=== PATIENT | female | born 1975 | race Caucasian/White ===

== ENCOUNTER 2021-02-20 13:46 | Outpatient (REF) | payer OTHER, SELFPAY ==
[2021-02-25 02:36] LABS: HPV mRNA E6/E7 Not Detected (Not Detected)
== END 2021-02-20 13:47 | disposition home or self-care (01) ==
LOC: HO.LAB 13:46
PROVIDERS: Visit Provider Internal Medicine
DX: Z12.4 Encounter for screening for malignant neoplasm of cervix (principal); Z11.51 Encounter for screening for human papillomavirus (HPV)
CPT/HCPCS: 87624; 88142

== ENCOUNTER 2021-02-25 06:39 | Outpatient (REF) | payer OTHER, SELFPAY ==
[2021-02-25 11:29] LABS: Glucose Urine UA NEG (NEG); Leukocyte Esterase Urine NEG (NEG); Nitrite Urine NEG (NEG); PH 6.5 (5.0-8.0); Specific Gravity - Urine 1.015 (1.005-1.025); Urine Blood NEG (NEG); Urine Ketones NEG (NEG); Urine Protein NEG (NEG-TRACE)
[2021-02-25 11:34] LABS: Hematocrit 40.1 % (37-47); Hemoglobin 13.2 g/dl (12.0-16.0); Mean Corpuscular HGB Conc 32.9 g/dl (31.0-35.0); Mean Corpuscular Hemoglobin 31.7 pg (27.0-33.0); Mean Corpuscular Volume 96.4 fL (80-98); Mean Platelet Volume 10.7 fL (9.4-12.3); Platelet Count 367 X10*3/uL (160-400); Red Blood Count 4.16 X10*6/uL (4.20-5.50); Red Cell Distribution Width 12.3 % (11.0-16.0); White Blood Count 7.7 X10*3/uL (4.8-10.8)
[2021-02-25 11:43] LABS: Appearance Urine CLEAR; Color Urine YELLOW
[2021-02-25 11:48] LABS: Alanine Aminotransferase 17 U/L (0-31); Albumin Level 4.3 g/dL (3.5-5.0); Alkaline Phosphatase 79 U/L (39-117); Anion Gap 13 (12-20); Aspartate Amino Transferase 19 U/L (5-31); Bilirubin Total 0.3 mg/dL (0.0-1.0); Blood Urea Nitrogen 11 mg/dL (9-16); Calcium 8.9 mg/dL (8.4-10.2); Carbon Dioxide 26 mmol/L (22-29); Chloride 104 mmol/L (96-108); Cholesterol 167 mg/dL; Estimated Glomerular Filt Rate > 60; Glucose Fasting 93 mg/dL (60-99); HDL Cholesterol 73 mg/dL; LDL Cholesterol Calculated 83 mg/dl; Potassium 4.3 mmol/L (3.3-5.1); Sodium 139 mmol/L (135-145); Total Protein 6.4 g/dL (6.5-8.0); Triglycerides 58 mg/dL
[2021-02-25 11:56] LABS: Bacteria Urine TRACE /LPF; RBC Urine 0 /HPF (0); Squamous Epithelial Cell Urine 3+ /LPF; WBC Urine 0 /HPF (0-4)
[2021-02-25 12:12] LABS: TSH reflex Free T4 1.25 uIU/mL (0.32-4.0)
== END 2021-02-25 06:40 | disposition home or self-care (01) ==
LOC: HO.HMGCLDS 06:39
PROVIDERS: PCP Internal Medicine; Visit Provider Internal Medicine
DX: Z00.00 Encounter for general adult medical examination without abnormal findings (principal)
CPT/HCPCS: 36415; 80053; 80061; 81001; 84443; 85027

== ENCOUNTER 2022-02-23 10:47 | Outpatient (REF) | payer OTHER, SELFPAY ==
[2022-03-02 11:51] LABS: HPV mRNA E6/E7 Not Detected (Not Detected)
== END 2022-02-23 10:48 | disposition home or self-care (01) ==
LOC: HO.LAB 10:47
PROVIDERS: Visit Provider Internal Medicine
DX: Z01.419 Encounter for gynecological examination (general) (routine) without abnormal findings (principal); Z11.51 Encounter for screening for human papillomavirus (HPV)
CPT/HCPCS: 87624; 88142

== ENCOUNTER 2023-03-02 09:01 | Outpatient (REF) | payer OTHER, SELFPAY ==
[2023-03-02 11:10] LABS: MANUAL DIFF FLAG NO
[2023-03-02 11:38] LABS: Basophils Absolute Auto 0.1 X10*3/uL (0.0-0.2); Eosinophils Absolute Auto 0.1 X10*3/uL (0.0-0.4); Eosinophils Percent Auto 1.1 % (0-4); Hematocrit 40.9 % (37.0-47.0); Hemoglobin 13.4 g/dl (12.0-16.0); Imm Gran Abs Auto 0.03 X10*3/uL (0.00-0.03); Imm Gran Pct Auto 0.4 % (0.0-0.4); Lymphocytes Absolute Auto 1.6 X10*3/uL (1.2-4.9); Lymphocytes Percent Auto 19.6 % (20-40); Mean Corpuscular HGB Conc 32.8 g/dl (31.0-35.0); Mean Corpuscular Hemoglobin 31.5 pg (27.0-33.0); Mean Corpuscular Volume 96.2 fL (80.0-98.0); Monocytes Absolute Auto 0.6 X10*3/uL (0.1-1.2); Monocytes Percent Auto 7.7 % (2-11); Neutrophils Absolute Auto 5.8 x10*3/uL (2.0-8.3); Neutrophils Percent Auto 70.2 % (45-73); Platelet Count 366 X10*3/uL (160-400); Red Blood Count 4.25 X10*6/uL (4.20-5.50); Red Cell Distribution Width 12.4 % (11.0-16.0); White Blood Count 8.2 X10*3/uL (4.8-10.8)
[2023-03-02 11:53] LABS: Alanine Aminotransferase 15 U/L (0-31); Albumin Level 4.3 g/dL (3.5-5.0); Alkaline Phosphatase 79 U/L (39-117); Anion Gap 11 (12-20); Aspartate Amino Transferase 17 U/L (5-31); Bilirubin Total 0.5 mg/dL (0.0-1.0); Blood Urea Nitrogen 10 mg/dL (9-16); Calcium 9.6 mg/dL (8.4-10.2); Carbon Dioxide 28 mmol/L (22-29); Chloride 106 mmol/L (96-108); Cholesterol 197 mg/dL; Estimated Glomerular Filt Rate > 60; Glucose Fasting 99 mg/dL (60-99); HDL Cholesterol 65 mg/dL; Iron 95 mcg/dL (30-160); LDL Cholesterol Calculated 119 mg/dl; Percent Iron Saturation 46 % (15-50); Potassium 4.3 mmol/L (3.3-5.1); Sodium 141 mmol/L (135-145); Total Iron Binding Capacity 205 mcg/dL (228-428); Total Protein 6.6 g/dL (6.5-8.0); Triglycerides 68 mg/dL; Unsaturated Iron Binding 110 ug/dL
[2023-03-02 12:10] LABS: TSH reflex Free T4 0.77 uIU/mL (0.32-4.0); Vitamin D 25-OH Total 36.7 ng/mL (>30)
== END 2023-03-02 09:02 | disposition home or self-care (01) ==
LOC: HO.HMGCLDS 09:01
PROVIDERS: PCP Internal Medicine; Visit Provider Internal Medicine
DX: Z00.00 Encounter for general adult medical examination without abnormal findings (principal); Z12.4 Encounter for screening for malignant neoplasm of cervix; Z20.2 Contact with and (suspected) exposure to infections with a predominantly sexual mode of transmission
CPT/HCPCS: 36415; 80053; 80061; 82306; 83540; 84443; 85025

== ENCOUNTER 2023-03-02 09:11 | Outpatient (REF) | payer OTHER, SELFPAY ==
[2023-03-03 22:54] LABS: HPV mRNA E6/E7 Not Detected (Not Detected)
== END 2023-03-02 09:12 | disposition home or self-care (01) ==
LOC: HO.LNP 09:11
PROVIDERS: Visit Provider Internal Medicine
DX: Z01.419 Encounter for gynecological examination (general) (routine) without abnormal findings (principal)
CPT/HCPCS: 87624; 88142

== ENCOUNTER 2023-04-07 15:51 | Outpatient (REF) | payer OTHER, SELFPAY ==
--- NOTE | ~2023-04-07 | MM_ITS ---
EXAMINATION: MM SCREENING DIGITAL BREAST TOMOSYNTHESIS, BILATERAL CLINICAL INFORMATION: Screening. Asymptomatic. The lifetime risk of breast cancer based on the Tyrer-Cuzick Model is 6.9%. COMPARISON: Mammography: This study is compared with prior exams dating back to 2018. TECHNIQUE: Digital breast tomosynthesis is performed in both the craniocaudal and mediolateral oblique views along with computer-aided detection (CAD). Synthesized 2D images are generated from the tomosynthesis. FINDINGS: The breasts are heterogeneously dense, which may obscure small masses (ACR BI-RADS breast composition Category c). There are no significant masses, abnormal calcifications, or other abnormalities. There is a tissue marker in the upper outer quadrant of the right breast from prior benign percutaneous biopsy. MM/MM tomosynthesis screening BI IMPRESSION: No mammographic evidence of malignancy. ASSESSMENT: BI-RADS BI-RADS 1 - Negative RECOMMENDATION: Routine annual mammography screening. 1 year F/U This examination should not preclude the clinical evaluation of a suspicious palpable abnormality. This patient's information was entered into a reminder system with a target due date for their next mammogram.
== END 2023-04-07 15:52 | disposition home or self-care (01) ==
LOC: HO.MAMMO 15:51
PROVIDERS: PCP Internal Medicine; Visit Provider Internal Medicine
DX: Z12.31 Encounter for screening mammogram for malignant neoplasm of breast (principal)
CPT/HCPCS: 77063; 77067

== ENCOUNTER → 2023-04-07 15:53 | Outpatient (BNV) | payer OTHER, SELFPAY | PROVIDERS: PCP Internal Medicine; Visit Provider Radiology Diagnostic Radiology | DX: Z12.31 Encounter for screening mammogram for malignant neoplasm of breast (principal) | CPT/HCPCS: 77063; 77067 ==

== ENCOUNTER 2023-04-28 11:09 | Outpatient (AMB) | payer OTHER, SELFPAY ==
--- NOTE | 2023-04-28 11:13 | MHC.OFFWIV ---
Intake Vital Signs 04/28/23 11:14 Height 5 ft 7 in BP 136/70 Blood Pressure Location Rt brachial Position Sitting Pulse 95 Pulse Source Pulse Oximeter Temp 96.8 F Temp Source Temporal Artery Scan Pulse Oximetry (%) 100 Oxygen Delivery Method Room Air Intake Visit Reasons: EST/hard time breathing Intake Note: Pt is here c/o feeling SOB since this morning. Pt states she has a history of panic attacks and feels like they are coming back. Patient Tobacco Use Status: Current everyday Tobacco user Allergies No Known Allergies Allergy (Verified 04/28/23 11:14) Do you need a note to return to daycare/school/sports/work: No HPI HPI Comments History of Present Illness Details The patient presents to the Urgent Care for evaluation of acute anxiety. She states that she sporadically has panic attacks at work it is always work related. She states that started about 3 years ago with a problem with communication at work, patient is a primary Albanian speaker and occasionally has trouble understanding Latvian. She reports that a new co-worker started in October and since then she felt like her panic attacks seem to be returning. She says the for sporadic and has them about once a month. There is associated shortness of breath. Patient is tearful, And crying at this time. [facility] Medical History Annual physical exam Smoker Surgical History H/O breast biopsy Family History Father No problems noted. Mother No problems noted. Social History Housing: House Alcohol intake: current Alcohol intake frequency: a few times a month Patient Tobacco Use Status: Current everyday Tobacco user Tobacco use type: Cigarette Cigarettes Per Day: 10 e-Cigarette/Vaping Use: Never Used Current occupational status: employed Cognitive needs: No Hearing needs: No Vision needs: Yes Review of Systems Const Denies weakness Eyes Reports no additional complaints ENT Denies dysphagia Card Reports no additional complaints, Denies dyspnea and Denies dyspnea on exertion Resp Denies cough, Denies hemoptysis, Denies dyspnea and Denies dyspnea on exertion GI Denies dysphagia Denies urinary incontinence Musc Reports back pain, Denies muscle weakness, Denies numbness and Denies tingling Neuro Denies focal weakness, Denies numbness, Denies tingling, Denies paresthesias and Denies weakness Physical Exam Vital Signs: Last Vital Signs Temp 96.8 F 04/28/23 11:14 Pulse 95 04/28/23 11:14 BP 136/70 04/28/23 11:14 Pulse Ox 100 04/28/23 11:14 Oxygen Delivery Method Room Air 04/28/23 11:14 Const General: healthy appearing and no acute distress Orientation/consciousness: patient oriented x3 Eyes General: appearance normal, both eyes and all related structures Pupils: Equal, round and reactive pupils present Resp Effort & Inspection: normal respiratory effort and able to speak in complete sentences Auscultation: clear to auscultation bilaterally Cardio Rate: regular rate Rhythm: regular rhythm Heart sounds: S1 normal heart sound present and S2 normal heart sound present Neuro General: patient oriented x3 and Normal light touch and pain sensation Cranial nerves: Yes Equal, round and reactive pupils present Psych Mental Status: other (Tearful ) Affect: Anxious affect present Insight: Good insight present (Psych) Assessment & Plan Assessment & Plan (1) Acute anxiety: Code(s): F41.9 - Anxiety disorder, unspecified Plan: The patient is weeks with a therapist and was just referred to a psychiatrist. She was prescribed BuSpar as an antidepressant per her PCP however she reports it made her nauseous and she did not continue taking it. At this time I think giving her a bridge to get her to the psychiatrist would be helpful and I will prescribe her Ativan to take p.r.n. only for acute panic episodes. Information was communicated to the patient in her napaimute Albanian that she had full understanding of the information. Patient has a follow-up appointment with PCP in 2 days. She was given a work note Medications: New lorazepam (Ativan) 1 mg PO BID PRN 14 tabs 0RF anxiety Coding Level of Care Code Est Pt Level 3 (29764) Diagnoses Acute anxiety F41.9
[2023-04-28 11:14] VITALS: BP 136/70; PULSE 95; TEMP 36; O2SAT 100
== END 2023-04-28 16:57 | disposition home or self-care (01) ==
PROVIDERS: PCP Internal Medicine; Visit Provider Emergency Medicine
DX: F41.9 Anxiety disorder, unspecified (principal)
CPT/HCPCS: 99213

== ENCOUNTER 2023-05-02 14:08 | Outpatient (AMB) | payer OTHER, SELFPAY ==
--- NOTE | 2023-05-02 14:52 | MHC.PC.OV ---
Vital Signs 05/02/23 14:55 Height 5 ft 7 in Weight 176 lb 6 oz BMI 27.6 BP 118/72 Blood Pressure Location Lt brachial Position Sitting Pulse 78 Pulse Source Pulse Oximeter Pulse Oximetry (%) 98 Oxygen Delivery Method Room Air Intake Visit Reasons: Follow up after walk in Allergies buspirone Adverse Reaction (Intermediate, Verified 05/02/23 15:22) Nausea and Vomiting Medication List - Last Reconciled 05/02/23 by Lennie Donohue MD buspirone 5 mg PO TID lorazepam (Ativan) 1 mg PO BID PRN ropinirole 0.5 mg PO BEDTIME sertraline 50 mg PO DAILY Tobacco use date assessed: 05/02/23 Dental Screening Dental Screen Date: 05/02/23 Did you have a dental visit in the last 12 months?: Yes Did you have a dental problem in the last 6 months where you did not have access to dental care?: No Was dental information given to patient?: No HPI Follow up after walk in HPI Details Pt presents for f/u panic attacks since 3 years ago, worse for the last 1 month. 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 Interaction with a new automated equipment engineer technician triggers patient's stress response occasionally escalating to panic attack. Patient started psychotherapy a month ago and has an appointment with psychiatrist next week. She has been drinking alcohol every night to calm herself and feels that she is drinking too much. Patient denies alcohol withdrawal symptoms. Patient has been taking buspirone on and off and feels that she is not craving alcohol as much after taking it but reports having some stomach upset for 2 hours after taking the medication. Patient states that she usually has a lot side effects from different medications. [facility] Medical History Annual physical exam Smoker Surgical History H/O breast biopsy Family History Father No problems noted. Mother No problems noted. Social History Housing: House Alcohol intake: current Alcohol intake frequency: a few times a month Patient Tobacco Use Status: Current everyday Tobacco user Tobacco use type: Cigarette Cigarettes Per Day: 10 e-Cigarette/Vaping Use: Never Used Current occupational status: employed Cognitive needs: No Hearing needs: No Vision needs: Yes Questionnaire Thrive Questionnaire Date Thrive assessed: 03/02/23 AUDIT C Alcohol Use Questionnaire (AUDIT-C) 1. How often do you have a drink containing alcohol?: Never 3. How often do you have six or more drinks on one occasion?: Never Total Score: 0 Score Reviewed/Action Taken: Yes HILDA-7 AMB Questionnaire HILDA-7 Date HILDA - 7 assessed: 03/02/23 Source: Developed by Drs. Isidro Victor, Desire Freeman, Nain Serrato and colleagues, with an educational ivis from [employer]. Review of Systems Const All systems reviewed & are unremarkable except as noted in HPI and below Reports no additional complaints Eyes Reports no additional complaints ENT Reports no additional complaints Card Reports no additional complaints Resp Reports no additional complaints GI Reports no additional complaints Reports no additional complaints Physical exam (Primary Care) Vital Signs: Last Vital Signs Pulse 78 05/02/23 14:55 BP 118/72 05/02/23 14:55 Pulse Ox 98 05/02/23 14:55 Oxygen Delivery Method Room Air 05/02/23 14:55 BMI result Body Mass Index 27.6 Tobacco/Smoking Status: Tobacco use Status Tobacco use date assessed 05/02/23 05/02/23 14:57 Patient Tobacco Use Status Current everyday Tobacco 05/02/23 14:53 Tobacco use type Cigarette 05/02/23 14:53 e-Cigarette/Vaping Use Never Used 05/02/23 14:53 Thrive Assessment: Date of Thrive Assessment Date Thrive assessed 03/02/23 05/02/23 14:53 Const General: no acute distress HENMT Face and sinus: Yes normal facial exam Resp Effort & Inspection: normal respiratory effort Auscultation: clear to auscultation bilaterally Cardio Rhythm: regular rhythm Heart sounds: S1 normal heart sound present and S2 normal heart sound present Assessment and Plan Assessment & Plan (1) Panic attack as reaction to stress: Code(s): F41.0 - Panic disorder [episodic paroxysmal anxiety]; F43.0 - Acute stress reaction Plan: Stress management discussed with the patient she will continue psychotherapy and follow-up with psychiatrist (2) Anxiety: Code(s): F41.9 - Anxiety disorder, unspecified Plan: Different treatment option discussed with the patient. She will continue to take buspirone at bedtime and increase to twice a day as she tolerates. She was given out of work note until May 23. (3) Alcohol overdose: Code(s): T51.91XA - Toxic effect of unspecified alcohol, accidental (unintentional), initial encounter Plan: Cutting down on alcohol intake discussed with the patient Medications: Discontinued lorazepam (Ativan) Discontinued Reason: Doctor's Order 1 mg PO BID PRN 14 tabs 0RF anxiety Coding Level of Care Code Est Pt Level 4 (94186) Diagnoses Panic attack as reaction to stress F41.0; F43.0 Anxiety F41.9 Alcohol overdose T51.91XA
[2023-05-02 14:55] VITALS: BP 118/72; PULSE 78; O2SAT 98; BMI 27.6
== END 2023-05-02 15:56 | disposition home or self-care (01) ==
PROVIDERS: PCP Internal Medicine; Visit Provider Internal Medicine
DX: F41.0 Panic disorder [episodic paroxysmal anxiety] (principal); F43.0 Acute stress reaction; F41.9 Anxiety disorder, unspecified; T51.91XA Toxic effect of unspecified alcohol, accidental (unintentional), initial encounter
CPT/HCPCS: 99214

== ENCOUNTER 2023-05-19 10:25 | Outpatient (AMB) | payer OTHER, SELFPAY ==
[2023-05-19 10:33] VITALS: BP 122/74; PULSE 84; O2SAT 96; BMI 27.6
--- NOTE | 2023-05-19 10:33 | MHC.PC.OV ---
Vital Signs 05/19/23 10:33 Height 5 ft 7 in Weight 176 lb BMI 27.6 BP 122/74 Blood Pressure Location Lt brachial Position Sitting Pulse 84 Pulse Source Pulse Oximeter Pulse Oximetry (%) 96 Oxygen Delivery Method Room Air Intake Visit Reasons: Follow up Intake Note: Pt is here today for a follow up visit on anxiety. Allergies buspirone Adverse Reaction (Intermediate, Verified 05/19/23 10:35) Nausea and Vomiting propanolol Adverse Reaction (Intermediate, Uncoded 05/19/23 11:12) Agitated Medication List - Last Reconciled 05/19/23 by Lennie Donohue MD ropinirole 0.75 mg (1.5 x 0.5 mg) PO BEDTIME Tobacco use date assessed: 05/02/23 HPI Follow up HPI Details Patient presents for the follow-up anxiety and panic attacks. She was seen by psychiatrist and started on propranolol for took it only for 4 days because of worsening symptoms of anxiety and anger. She follows up with a counselor regularly and has an appointment psychiatrist this week. Patient has not been able to go back to work and would like to extend out of work time for 6 months. [facility] Medical History Annual physical exam Smoker Surgical History H/O breast biopsy Family History Father No problems noted. Mother No problems noted. Social History Housing: House Alcohol intake: current Alcohol intake frequency: a few times a month Patient Tobacco Use Status: Current everyday Tobacco user Tobacco use type: Cigarette Cigarettes Per Day: 10 e-Cigarette/Vaping Use: Never Used Current occupational status: employed Cognitive needs: No Hearing needs: No Vision needs: Yes Questionnaire Thrive Questionnaire Date Thrive assessed: 03/02/23 HILDA-7 AMB Questionnaire HILDA-7 Date HILDA - 7 assessed: 03/02/23 Source: Developed by Drs. Isidro Victor, Desire Freeman, Nain Serrato and colleagues, with an educational ivis from [email or web address]. Review of Systems Const All systems reviewed & are unremarkable except as noted in HPI and below Reports no additional complaints Eyes Reports no additional complaints ENT Reports no additional complaints Card Reports no additional complaints Resp Reports no additional complaints GI Reports no additional complaints Physical exam (Primary Care) Vital Signs: Last Vital Signs Pulse 84 05/19/23 10:33 BP 122/74 05/19/23 10:33 Pulse Ox 96 05/19/23 10:33 Oxygen Delivery Method Room Air 05/19/23 10:33 BMI result Body Mass Index 27.6 Tobacco/Smoking Status: Tobacco use Status Tobacco use date assessed 05/02/23 05/19/23 10:37 Patient Tobacco Use Status Current everyday Tobacco 05/19/23 10:37 Tobacco use type Cigarette 05/19/23 10:37 e-Cigarette/Vaping Use Never Used 05/19/23 10:37 Thrive Assessment: Date of Thrive Assessment Date Thrive assessed 03/02/23 05/19/23 10:37 Const General: no acute distress HENMT Head: Yes normal to inspection Mouth: Normal oral and palatal mucosa present Neck Neck: Yes supple Resp Effort & Inspection: normal respiratory effort Auscultation: clear to auscultation bilaterally Cardio Rhythm: regular rhythm Heart sounds: S1 normal heart sound present and S2 normal heart sound present Assessment and Plan Assessment & Plan (1) Anxiety: Code(s): F41.9 - Anxiety disorder, unspecified Plan: Continue current therapy and out of work note given for 6 months. Patient will follow-up in 6 months Medications: Changed From ropinirole administer 1-3 hours before bedtime 0.5 mg PO BEDTIME 90 tabs 6RF To ropinirole administer 1-3 hours before bedtime 0.75 mg (1.5 x 0.5 mg) PO BEDTIME 135 tabs 6RF Coding Level of Care Code Est Pt Level 3 (86989) Diagnoses Anxiety F41.9
== END 2023-05-19 11:32 | disposition home or self-care (01) ==
PROVIDERS: PCP Internal Medicine; Visit Provider Internal Medicine
DX: F41.9 Anxiety disorder, unspecified (principal)
CPT/HCPCS: 99213

== ENCOUNTER 2023-05-30 07:54 | Outpatient (AMB) | payer OTHER, SELFPAY ==
--- NOTE | 2023-05-30 08:13 | MHC.OFFVIS ---
Intake Vital Signs 05/30/23 08:22 Height 5 ft 7 in BP 108/64 Blood Pressure Location Lt brachial Position Sitting Pulse 78 Intake Visit Reasons: Colonoscopy screening Intake Note: Patient new consult for Colonoscopy screening. Patient cc: rectal bleeding with hemorrhoids. Denies any other GI issues. Cytogenetic Technician Required: Yes Cytogenetic Technician Name: Arianne [id number] Accompanied by: Self / Same As Patient Allergies buspirone Adverse Reaction (Intermediate, Verified 05/30/23 08:13) Nausea and Vomiting propanolol Adverse Reaction (Intermediate, Uncoded 05/19/23 11:12) Agitated Medication List - Last Reconciled 05/30/23 by Anna Elias PA-C ropinirole 0.75 mg (1.5 x 0.5 mg) PO BEDTIME HPI HPI Comments History of Present Illness Details A 47 y/o F referred for index screening colonoscopy- hemorrhoids occ. rectal bleeding- they seem to bother her-she asks to have them removed- Good appetite, she says she has no real GI issues-she has been off work due to anxiety/social issues No respiratory or cardiac illness No N/V/ D- abdominal pain-no fever or chill PFSH Medical History Annual physical exam Smoker Surgical History H/O breast biopsy Family History Father No problems noted. Mother No problems noted. Social History (Updated 05/30/23 @ 08:24 by Anna Elias PA-C) Housing: House Alcohol intake: current Alcohol intake frequency: a few times a month Patient Tobacco Use Status: Current everyday Tobacco user Tobacco use type: Cigarette Cigarettes Per Day: 10 e-Cigarette/Vaping Use: Never Used Current occupational status: employed Current occupation: [employer] Cognitive needs: No Hearing needs: No Vision needs: Yes Review of Systems Const All systems reviewed & are unremarkable except as noted in HPI and below Card Denies chest pain and Denies dyspnea Resp Denies dyspnea GI Denies abdominal pain, Denies nausea, Denies vomiting and Reports other (hemorrhoids- rectal bleed intermittent) Psych Reports anxiety Physical Exam Vital Signs: Last Vital Signs Pulse 78 05/30/23 08:22 BP 108/64 05/30/23 08:22 Const General: cooperative, healthy appearing, comfortable and no acute distress Orientation/consciousness: patient oriented x3 Limitations: language barrier Eyes Sclerae: sclerae normal Resp Effort & Inspection: normal respiratory effort and able to speak in complete sentences Auscultation: clear to auscultation bilaterally, no rales, no rhonchi and no wheezes Cardio Rate: regular rate Rhythm: regular rhythm Heart sounds: S1 normal heart sound present and S2 normal heart sound present GI Palpation (GI): Soft to palpation and nontender Auscultation: normal bowel sounds Skin General skin exam: no rashes or lesions noted Neuro General: patient oriented x3 Extrem General: Yes full ROM Psych Appearance: grossly normal and well kempt Mental Status: mental status grossly normal Speech and movement: Normal speech and movement present and Clear speech present Affect: normal affect Attitude: cooperative Thought process: Normal thought process present Thought content: Normal thought content present Insight: Good insight present (Psych) Judgement: Good judgement present (Psych) Assessment & Plan Assessment & Plan (1) Encounter for screening colonoscopy: Code(s): Z12.11 - Encounter for screening for malignant neoplasm of colon Plan: Index screening colonoscopy MiraLax Gatorade split prep (2) Hemorrhoids: Code(s): K64.9 - Unspecified hemorrhoids Plan: Maintain high-fiber diet Avoid straining Rectal cream Surgical consult (3) Rectal bleeding: Code(s): K62.5 - Hemorrhage of anus and rectum Plan Intermittent Orders: Orders Colonoscopy - GI Use Only Today Z12.11 - Encounter for screening for malignant neoplasm of colon Referrals General Surgery Referral K62.5 - Hemorrhage of anus and rectum, K64.9 - Unspecified hemorrhoids Medications: New bisacodyl (Dulcolax (bisacodyl)) Take 4 tablets by mouth at 12:00pm the day before your procedure. 20 mg (4 x 5 mg) PO ONCE 1 day 4 tabs 0RF colonoscopy prep Z12.11 - Encounter for screening for malignant neoplasm of colon polyethylene glycol 3350 (Miralax) Take as directed by mouth the day before your procedure. 238 grams PO ONCE 1 day PRN 238 grams 0RF laxative effect hydrocortisone 2.5% (Proctosol HC) 1 appl IN BEDTIME PRN 30 grams 3RF hemorrhoids Patient Instructions: A very pleasant 47-year-old female referred for index screening colonoscopy-known hemorrhoids intermittent rectal bleeding with straining She would be scheduled for Screening colonoscopy- MG prep Maintain HFD- avoid straining- rectal cream Surgical referral for hemorrhoids Call with questions or concerns Coding Level of Care Code New Pt Level 3 (96153) Diagnoses Encounter for screening colonoscopy Z12.11 Hemorrhoids K64.9 Rectal bleeding K62.5 Time Spent (min) 30 Comment [id number]
[2023-05-30 08:22] VITALS: BP 108/64; PULSE 78
== END 2023-05-30 10:40 | disposition home or self-care (01) ==
PROVIDERS: PCP Internal Medicine; Visit Provider Physician Assistant
DX: K64.9 Unspecified hemorrhoids (principal); K62.5 Hemorrhage of anus and rectum; Z12.11 Encounter for screening for malignant neoplasm of colon; Z01.818 Encounter for other preprocedural examination
CPT/HCPCS: 99203

== ENCOUNTER → 2023-05-30 07:54 | Outpatient (BNVA) | payer OTHER, SELFPAY | PROVIDERS: PCP Internal Medicine; Visit Provider Physician Assistant ==

== ENCOUNTER 2023-06-15 10:54 | Outpatient (AMB) | payer OTHER, SELFPAY ==
[2023-06-15 11:00] VITALS: BP 117/61; PULSE 68
--- NOTE | 2023-06-15 11:00 | A.OFFVIS_ITS ---
Intake Vital Signs 06/15/23 11:00 Height 5 ft 7 in BP 117/61 Blood Pressure Location Rt brachial Position Sitting Pulse 68 Intake Visit Reasons: Hemorrhoids, hemorrhage of anus and rectum Intake Note: This patient presents for an assessment for hemorrhoids. Patient c/o; Onset 4-5 years, occasional rectal bleeding, denies Hx of constipation. Process Safety Specialist Required: Yes Process Safety Specialist Language: Guamanian Process Safety Specialist Name: Francia([id number]) Gauge Maker Apprentice: Gauge Maker Apprentice offered & declined Accompanied by: Self / Same As Patient Allergies buspirone Adverse Reaction (Intermediate, Verified 06/15/23 11:10) Nausea and Vomiting propanolol Adverse Reaction (Intermediate, Uncoded 06/15/23 11:10) Agitated Medication List - Last Reconciled 06/15/23 by Lemuel Lange MD bisacodyl (Dulcolax (bisacodyl)) 20 mg (4 x 5 mg) PO ONCE 1 day hydrocortisone 2.5% (Proctosol HC) 1 appl VA BEDTIME PRN polyethylene glycol 3350 (Miralax) 238 grams PO ONCE PRN 1 day ropinirole 0.75 mg (1.5 x 0.5 mg) PO BEDTIME HPI Hemorrhoids, hemorrhage of anus and rectum HPI Details 47-year-old female referred for hemorrho ids. She says that she know says she has had hemorrhoids for many years. She says that for about several years now, she would notice periodic blood on wiping after bowel movements. She also says that once in a while she would feel some pain and the anus She denies being constipated. She describes her symptoms are so mild however. [facility] Medical History (Updated 06/15/23 @ 15:36 by Lemuel Lange MD) Internal and external bleeding hemorrhoids Smoker Annual physical exam Surgical History H/O breast biopsy Family History Father No problems noted. Mother No problems noted. Social History Housing: House Alcohol intake: current Alcohol intake frequency: a few times a month Patient Tobacco Use Status: Current everyday Tobacco user Tobacco use type: Cigarette Cigarettes Per Day: 10 e-Cigarette/Vaping Use: Never Used Current occupational status: employed Current occupation: [employer] Cognitive needs: No Hearing needs: No Vision needs: Yes Review of Systems Const Denies chills and Denies fever(s) Card Denies chest pain, Denies dyspnea and Denies dyspnea on exertion Resp Denies cough, Denies dyspnea and Denies dyspnea on exertion GI Reports hematochezia and Denies change in bowel habits Denies hematuria Musc Denies back pain and Denies limited range of motion Neuro Denies focal weakness and Denies convulsions Psych Denies depression and Denies mood swings Physical Exam Vital Signs: Last Vital Signs Pulse 68 06/15/23 11:00 BP 117/61 06/15/23 11:00 Const General: comfortable and no acute distress Orientation/consciousness: patient oriented x3 Neck Neck: Yes no lymphadenopathy Resp Auscultation: clear to auscultation bilaterally Cardio Rhythm: regular rhythm GI Other: Rectal exam shows moderate size external hemorrhoids Palpation (GI): Soft to palpation, nontender and no guarding Neuro General: patient oriented x3 Office Procedures Anoscopy She was in jean marie-knife position. The anoscope was gently inserted. Mixed internal and external hemorrhoidal columns on seen on both the left and right side. There were no other lesions. There was no fissure. There is no significant tenderness. There was no bleeding. There was good sphincter tone. [id number] Assessment & Plan Assessment & Plan (1) Internal and external bleeding hemorrhoids: Code(s): K64.4 - Residual hemorrhoidal skin tags; K64.8 - Other hemorrhoids Plan: She has moderate sized columns of internal and external hemorrhoids as described above. I had a long discussion with her about the option of proceeding with hemorrhoidectomy. I described the technique of this procedure. I reviewed the risks including but not limited to bleeding, infections significant postop pain, poor healing, as well as the benefits and alternatives. I also had a long talk with their as to what to expect postprocedure She does state that she feels that her symptoms are minimal at this time. She would like to hold off on hemorrhoidectomy for now. She says that if she feels that her symptoms are worsening, she will come back to the office to be re- evaluated. Coding Level of Care Code New Pt Level 3 (33840) Diagnoses Internal and external bleeding hemorrhoids K64.4; K64.8 CPT Codes Details - CPT: 53451-[id number] ([id number])
== END 2023-06-15 11:27 | disposition home or self-care (01) ==
PROVIDERS: PCP Internal Medicine; Referring Provider Physician Assistant; Visit Provider Surgery
DX: K64.4 Residual hemorrhoidal skin tags (principal); K64.8 Other hemorrhoids
CPT/HCPCS: 46600; 99203

== ENCOUNTER → 2023-06-15 10:54 | Outpatient (BNVA) | payer OTHER, SELFPAY | PROVIDERS: PCP Internal Medicine; Referring Provider Physician Assistant; Visit Provider Surgery | DX: K64.4 Residual hemorrhoidal skin tags (principal); K64.8 Other hemorrhoids | CPT/HCPCS: 46600 ==

== ENCOUNTER 2024-03-05 08:21 | Outpatient (REF) | payer OTHER, SELFPAY ==
[2024-03-05 10:25] LABS: MANUAL DIFF FLAG NO
[2024-03-05 10:41] LABS: Basophils Absolute Auto 0.1 X10*3/uL (0.0-0.2); Eosinophils Absolute Auto 0.2 X10*3/uL (0.0-0.4); Eosinophils Percent Auto 2.3 % (0-4); Hematocrit 40.1 % (37.0-47.0); Hemoglobin 13.3 g/dl (12.0-16.0); Imm Gran Abs Auto 0.03 X10*3/uL (0.00-0.03); Imm Gran Pct Auto 0.4 % (0.0-0.4); Lymphocytes Absolute Auto 2.1 X10*3/uL (1.2-4.9); Lymphocytes Percent Auto 26.5 % (20-40); Mean Corpuscular HGB Conc 33.2 g/dl (31.0-35.0); Mean Corpuscular Hemoglobin 31.7 pg (27.0-33.0); Mean Corpuscular Volume 95.5 fL (80.0-98.0); Mean Platelet Volume 10.7 fL (9.4-12.3); Monocytes Absolute Auto 0.5 X10*3/uL (0.1-1.2); Monocytes Percent Auto 6.8 % (2-11); Platelet Count 386 X10*3/uL (160-400); Red Cell Distribution Width 12.3 % (11.0-16.0); White Blood Count 7.9 X10*3/uL (4.8-10.8)
[2024-03-05 11:00] LABS: Iron 73 mcg/dL (30-160); Percent Iron Saturation 35 % (15-50); Total Iron Binding Capacity 211 mcg/dL (228-428); Unsaturated Iron Binding 138 ug/dL
== END 2024-03-05 08:22 | disposition home or self-care (01) ==
LOC: HO.HMGCLDS 08:21
PROVIDERS: PCP Internal Medicine; Visit Provider Internal Medicine
DX: G25.81 Restless legs syndrome (principal)
CPT/HCPCS: 36415; 83540; 85025

== ENCOUNTER 2024-03-05 08:49 | Outpatient (AMB) | payer OTHER, SELFPAY ==
--- NOTE | 2024-03-05 08:54 | A.OFFPC_ITS ---
Vital Signs 03/05/24 08:55 Height 5 ft 7 in Weight 176 lb BMI 27.6 BP 104/66 Blood Pressure Location Rt brachial Position Sitting Pulse 69 Pulse Source Pulse Oximeter Pulse Oximetry (%) 98 Oxygen Delivery Method Room Air Intake Visit Reasons: Annual PE Intake Note: Pt is here today for PE. Allergies buspirone Adverse Reaction (Intermediate, Verified 03/05/24 08:57) Nausea and Vomiting propanolol Adverse Reaction (Intermediate, Uncoded 03/05/24 08:57) Agitated Medication List - Last Reconciled 03/05/24 by Lennie Donohue MD bisacodyl (Dulcolax (bisacodyl)) 20 mg (4 x 5 mg) PO ONCE 1 day hydrocortisone 2.5% (Proctosol HC) 1 appl [place] BEDTIME PRN polyethylene glycol 3350 (Miralax) 238 grams PO ONCE PRN 1 day ropinirole 0.75 mg (1.5 x 0.5 mg) PO BEDTIME Tobacco use date assessed: 03/05/24 Dental Screening Dental Screen Date: 03/05/24 Did you have a dental visit in the last 12 months?: Yes Did you have a dental problem in the last 6 months where you did not have access to dental care?: No Was dental information given to patient?: Patient has dentist HPI Annual PE HPI Details Pt presents for PE. She has been waiting for an appointment for screening colonoscopy since last May. Patient complains of hot flashes and insomnia since last year. Anxiety resolved PFSH Medical History Internal and external bleeding hemorrhoids Smoker Annual physical exam Surgical History H/O breast biopsy Family History Father No problems noted. Mother No problems noted. Social History Housing: House Alcohol intake: current Alcohol intake frequency: a few times a month Patient Tobacco Use Status: Current everyday Tobacco user Tobacco use type: Cigarette Cigarettes Per Day: 10 e-Cigarette/Vaping Use: Never Used service: No Current occupational status: employed Current occupation: [employer] Cognitive needs: No Hearing needs: No Vision needs: Yes Questionnaire PHQ-9 Over the last 2 weeks, how often have you been bothered by any of the following problems? 1. Little interest or pleasure in doing things: not at all 2. Feeling down, depressed, or hopeless: not at all 3. Trouble falling or staying asleep, or sleeping too much: not at all 4. Feeling tired or having little energy: not at all 5. Poor appetite or overeating: not at all 6. Feeling bad about yourself - or that you are a failure or have let yourself or your family down: not at all 7. Trouble concentrating on things, such as reading the newspaper or watching television: not at all 8. Moving or speaking so slowly that other people could have noticed. Or the opposite - being so fidgety or restless that you have been moving around a lot more than usual: not at all 9. Thoughts that you would be better off or of hurting yourself in some way: not at all Total score: 0 Depression Screening Interpretation: Negative Depression Screening Done: Yes Source: Developed by Drs. Isidro Victor, Desire Freeman, Nain Serrato and colleagues, with an educational ivis from [employer]. Thrive Questionnaire Date Thrive assessed: 03/05/24 I am a: Patient What is your living situation today?: I have a steady place to live Within the past 12 months, did the food you bought not last and you didn't have the money to get more?: Never true Within the past 12 months, did you worry whether your food would run out before you got money to buy more?: Never true Do you have trouble paying for medicines?: No Do you have trouble getting transportation to medical appointments?: No Do you have trouble paying your heating and electricity bill?: No Do you have trouble taking care of your child, family member or friend?: No Do you have trouble with day-to-day activities such as bathing, preparing meals, shopping, managing finances, etc.?: No Are you currently unemployed and looking for a job?: No Are you interested in more education?: No Please select the resources that you would like help with: None THRIVE Score: 0 AUDIT C Alcohol Use Questionnaire (AUDIT-C) 1. How often do you have a drink containing alcohol?: Monthly or less 2. How many drinks containing alcohol do you have on a typical day when you are drinking?: 1 or 2 3. How often do you have six or more drinks on one occasion?: Never Total Score: 1 HILDA-7 AMB Questionnaire HILDA-7 Date HILDA - 7 assessed: 03/05/24 Feeling nervous, anxious, or on edge: 0 = Not at all Not being able to stop or control worryin = Not at all Worrying too much about different things: 0 = Not at all Trouble relaxin = Not at all Being so restless that it is hard to sit still: 0 = Not at all Becoming easily annoyed or irritable: 0 = Not at all Feeling afraid as if something awful might happen: 0 = Not at all Total HILDA-7 score (0-4 normal; 5-9 mild; 10-14 moderate; 15-21 severe): 0 Source: Developed by Drs. Isidro Victor, Desire Freeman, Nain Serrato and colleagues, with an educational ivis from [employer]. Review of Systems Const All systems reviewed & are unremarkable except as noted in HPI and below Reports no additional complaints Eyes Reports no additional complaints ENT Reports no additional complaints Card Reports no additional complaints Resp Reports no additional complaints GI Reports no additional complaints Reports no additional complaints Physical exam (Primary Care) Vital Signs: Last Vital Signs Pulse 69 03/05/24 08:55 BP 104/66 03/05/24 08:55 Pulse Ox 98 03/05/24 08:55 Oxygen Delivery Method Room Air 03/05/24 08:55 BMI result Body Mass Index 27.6 Tobacco/Smoking Status: Tobacco use Status Tobacco use date assessed 03/05/24 03/05/24 08:59 Patient Tobacco Use Status Current everyday Tobacco 03/05/24 08:59 Tobacco use type Cigarette 03/05/24 08:59 e-Cigarette/Vaping Use Never Used 03/05/24 08:59 PHQ-9: PHQ-9 Score PHQ-9: Total score 0 03/05/24 09:04 Depression Screening Interpretation: Negative Thrive Assessment: Date of Thrive Assessment Date Thrive assessed 03/05/24 03/05/24 09:04 Const General: no acute distress HENMT Head: Yes normal to inspection Ears: hearing grossly normal bilaterally Face and sinus: Yes normal facial exam Mouth: Normal oral and palatal mucosa present Throat: Yes posterior oropharynx normal Eyes General: appearance normal, both eyes and all related structures Neck Neck: Yes no lymphadenopathy and Yes supple Resp Effort & Inspection: normal respiratory effort Auscultation: clear to auscultation bilaterally Cardio Rhythm: regular rhythm Heart sounds: S1 normal heart sound present and S2 normal heart sound present GI Inspection: Yes normal to inspection Palpation (GI): Soft to palpation Percussion: Yes normal to percussion Auscultation: normal bowel sounds Assessment and Plan Assessment & Plan (1) Annual physical exam: Code(s): Z00.00 - Encounter for general adult medical examination without abnormal findings Plan: Well-balanced diet regular exercise discussed with the patient. She is up-to-date with the mammogram. The message to [facility] sent to schedule screening colonoscopy (2) Smoker: Comment: 1 PPD X 30 yrs, not interested to quit, referred to lung ca screen program 03/05/24 Code(s): F17.200 - Nicotine dependence, unspecified, uncomplicated Plan: Referred for lung cancer screening program, tobacco quitting discussed with the patient Orders: Orders Comprehensive Whitney. Panel Fast 1 Year . - Nicotine dependence, unspecified, uncomplicated, Z00.00 - Encounter for general adult medical examination without abnormal findings Complete Blood Count Auto Diff 1 Year . - Nicotine dependence, unspecified, uncomplicated, Z00.00 - Encounter for general adult medical examination without abnormal findings Lipid Panel 1 Year . - Nicotine dependence, unspecified, uncomplicated, Z00.00 - Encounter for general adult medical examination without abnormal findings Vitamin D 25-OH Total 1 Year . - Nicotine dependence, unspecified, uncomplicated, Z00.00 - Encounter for general adult medical examination without abnormal findings Referrals Thoracic/General Surgery Referral .200 - Nicotine dependence, unspecified, uncomplicated Coding Level of Care Code Est Pt Prev Care 40-64y(13094) Diagnoses Annual physical exam Z00.00 Smoker F17.200
[2024-03-05 08:55] VITALS: BP 104/66; PULSE 69; O2SAT 98; BMI 27.6
== END 2024-03-05 09:58 | disposition home or self-care (01) ==
PROVIDERS: Visit Provider Internal Medicine
DX: Z00.00 Encounter for general adult medical examination without abnormal findings (principal); F17.200 Nicotine dependence, unspecified, uncomplicated
CPT/HCPCS: 99396

== ENCOUNTER 2024-04-27 07:54 | Outpatient (AMB) | payer OTHER, SELFPAY ==
--- NOTE | 2024-04-27 07:55 | A.OFFPC_ITS ---
Vital Signs 04/27/24 07:56 Height 5 ft 7 in Weight 178 lb BMI 27.9 BP 120/72 Blood Pressure Location Lt brachial Position Sitting Pulse 76 Pulse Source Pulse Oximeter Pulse Oximetry (%) 96 Oxygen Delivery Method Room Air Intake Visit Reasons: Follow up on anxiety Allergies buspirone Adverse Reaction (Intermediate, Verified 04/27/24 08:00) Nausea and Vomiting propanolol Adverse Reaction (Intermediate, Uncoded 04/27/24 08:00) Agitated Tobacco use date assessed: 04/27/24 Dental Screening Dental Screen Date: 03/05/24 HPI Follow up on anxiety HPI Details Pt presents c/o increased stress at work and worsening anxiety and insomnia for 2 months. Pt used to see psychologist last year for the same problem. She tried multiple meds prescribed by psychiatrist last year and could not tolerate them. She has been taking buspirone on and off but does not think it is working. Patient reports insomnia but denies depression suicidal ideation change in appetite. [facility] Medical History RLS (restless legs syndrome) Anxiety Internal and external bleeding hemorrhoids Nicotine dependence, cigarettes, uncomplicated Surgical History H/O breast biopsy Family History Father No problems noted. Mother No problems noted. Social History Housing: House Alcohol intake: current Alcohol intake frequency: a few times a month Patient Tobacco Use Status: Current everyday Tobacco user Tobacco use type: Cigarette Cigarettes Per Day: 10 e-Cigarette/Vaping Use: Never Used service: No Current occupational status: employed Current occupation: [employer] Cognitive needs: No Hearing needs: No Vision needs: Yes Questionnaire PHQ-9 Over the last 2 weeks, how often have you been bothered by any of the following problems? 1. Little interest or pleasure in doing things: not at all 2. Feeling down, depressed, or hopeless: several days 3. Trouble falling or staying asleep, or sleeping too much: nearly every day 4. Feeling tired or having little energy: several days 5. Poor appetite or overeating: not at all 6. Feeling bad about yourself - or that you are a failure or have let yourself or your family down: several days 7. Trouble concentrating on things, such as reading the newspaper or watching television: several days 8. Moving or speaking so slowly that other people could have noticed. Or the opposite - being so fidgety or restless that you have been moving around a lot more than usual: not at all 9. Thoughts that you would be better off or of hurting yourself in some way: not at all Total score: 7 Depression Screening Interpretation: Negative Depression Screening Done: Yes Source: Developed by Drs. Isidro Victor, Desire Freeman, Nain Serrato and colleagues, with an educational ivis from [employer]. Thrive Questionnaire Date Thrive assessed: 04/27/24 I am a: Patient What is your living situation today?: I have a steady place to live Within the past 12 months, did the food you bought not last and you didn't have the money to get more?: Never true Within the past 12 months, did you worry whether your food would run out before you got money to buy more?: I choose not to answer this question Do you have trouble paying for medicines?: I choose not to answer this question Do you have trouble getting transportation to medical appointments?: No Do you have trouble paying your heating and electricity bill?: Yes Do you have trouble taking care of your child, family member or friend?: No Do you have trouble with day-to-day activities such as bathing, preparing meals, shopping, managing finances, etc.?: I choose not to answer this question Are you currently unemployed and looking for a job?: No Are you interested in more education?: No Please select the resources that you would like help with: Job search/training Currently or been in a relationship where the following occur: I choose not to answer THRIVE Score: 1 AUDIT C Alcohol Use Questionnaire (AUDIT-C) 1. How often do you have a drink containing alcohol?: 2-4 times a month 2. How many drinks containing alcohol do you have on a typical day when you are drinking?: 1 or 2 3. How often do you have six or more drinks on one occasion?: Never Total Score: 2 HILDA-7 AMB Questionnaire HILDA-7 Date HILDA - 7 assessed: 03/05/24 Feeling nervous, anxious, or on edge: 1 = Several days Not being able to stop or control worryin = Several days Worrying too much about different things: 1 = Several days Trouble relaxin = Several days Being so restless that it is hard to sit still: 0 = Not at all Becoming easily annoyed or irritable: 1 = Several days Feeling afraid as if something awful might happen: 1 = Several days Total HILDA-7 score (0-4 normal; 5-9 mild; 10-14 moderate; 15-21 severe): 6 Source: Developed by Drs. Isidro Victor, Desire Freeman, aNin Serrato and colleagues, with an educational ivis from [employer]. Review of Systems Const All systems reviewed & are unremarkable except as noted in HPI and below Reports no additional complaints Eyes Reports no additional complaints ENT Reports no additional complaints Card Reports no additional complaints Resp Reports no additional complaints GI Reports no additional complaints Reports no additional complaints Physical exam (Primary Care) Vital Signs: Last Vital Signs Pulse 76 04/27/24 07:56 BP 120/72 04/27/24 07:56 Pulse Ox 96 04/27/24 07:56 Oxygen Delivery Method Room Air 04/27/24 07:56 BMI result Body Mass Index 27.9 Tobacco/Smoking Status: Tobacco use Status Tobacco use date assessed 04/27/24 04/27/24 08:02 Patient Tobacco Use Status Current everyday Tobacco 04/27/24 07:56 Tobacco use type Cigarette 04/27/24 07:56 e-Cigarette/Vaping Use Never Used 04/27/24 07:56 PHQ-9: PHQ-9 Score PHQ-9: Total score 7 04/27/24 08:02 Depression Screening Interpretation: Negative Thrive Assessment: Date of Thrive Assessment Date Thrive assessed 04/27/24 04/27/24 07:56 Currently or been in a relationship where the following occur: I choose not to answer Const General: no acute distress HENMT Head: Yes normal to inspection Ears: hearing grossly normal bilaterally Resp Effort & Inspection: normal respiratory effort Auscultation: clear to auscultation bilaterally Cardio Rhythm: regular rhythm Heart sounds: S1 normal heart sound present and S2 normal heart sound present Assessment and Plan Assessment & Plan (1) Anxiety: Code(s): F41.9 - Anxiety disorder, unspecified Plan: Stress management, mindfulness regular physical activity discussed with the patient. She will call his psychologist to restart counseling. Out of work note until August 28 and follow-up as needed Coding Level of Care Code Est Pt Level 3 (03788) Diagnoses Anxiety F41.9
[2024-04-27 07:56] VITALS: BP 120/72; PULSE 76; O2SAT 96; BMI 27.9
== END 2024-04-27 09:45 | disposition home or self-care (01) ==
PROVIDERS: PCP Internal Medicine; Visit Provider Internal Medicine
DX: F41.9 Anxiety disorder, unspecified (principal)
CPT/HCPCS: 99213

== ENCOUNTER 2024-06-08 09:13 | Outpatient (AMB) | payer OTHER, SELFPAY ==
--- NOTE | 2024-06-08 07:51 | MHC.OFFVIS ---
Intake Visit Reasons: Current Smoker Allergies buspirone Adverse Reaction (Intermediate, Verified 04/27/24 08:00) Nausea and Vomiting propanolol Adverse Reaction (Intermediate, Uncoded 04/27/24 08:00) Agitated HPI HPI Current Smoker: Details: Initial visit for this 48yo smoker with a 30PYH. Patient has been smoking since age 14 for 34 years at 1ppd. . Denies marijuana use. Denies second hand smoke exposure. Denies exposure to chemicals or substances like asbestos. . Denies known family history of lung cancer. Denies personal history of cancers. Denies chest CT in last year. . Notes travel outside the [place]. ([place], [place], [place], [place]) Denies recent respiratory illness or recent hospitalization for respiratory issues. Denies testing positive for COVID. Admits receiving COVID Vaccine. x 2 . Denies fever, chills, new/worsening cough, hemoptysis, hoarseness or dysphagia. Denies significant chest pain, significant dyspnea or unintentional weight loss. Patient Lung Cancer Screening Questionnaire reviewed with patient by provider. . Shared Decision Making Completed. Patient meets criteria. Discussed in detail with patient, the risk vs benefit of LDCT screening. Patient consents to proceed with scan. Discussed smoking cessation. [facility] Medical History (Updated 06/08/24 @ 09:40 by Delmi Blanco PA-C) RLS (restless legs syndrome) Anxiety Internal and external bleeding hemorrhoids Nicotine dependence, cigarettes, uncomplicated Surgical History H/O breast biopsy Family History Father No problems noted. Mother No problems noted. Social History (Updated 06/08/24 @ 09:40 by Delmi Blanco PA-C) Housing: House Alcohol intake: current Alcohol intake frequency: a few times a month Patient Tobacco Use Status: Current everyday Tobacco user Tobacco use type: Cigarette Years Smoked: onset 14yo, 1ppd x 34yrs - 30pyh e-Cigarette/Vaping Use: Never Used service: No Current occupational status: employed Current occupation: [employer] Cognitive needs: No Hearing needs: No Vision needs: Yes Assessment & Plan Assessment & Plan (1) Nicotine dependence, cigarettes, uncomplicated: Comment: (current smoker - onset 14yo, 1ppd x 34yrs - 30pyh) Code(s): F17.210 - Nicotine dependence, cigarettes, uncomplicated Category: Medical Plan: - SDM visit completed today in office. - Patient meets criteria for LDCT for lung cancer screening purposes and is asymptomatic. - Smoking cessation counseling offered. Patients can always call [phone]. - Will arrange for a LDCT scan of the chest for screening purposes at [facility]. - Risks, benefits, and alternatives were discussed in detail and the patient agrees to proceed. - Risks discussed include but are not limited to: radiation exposure, anxiety during testing and while awaiting results, false negatives, false positives and possibility of additional intervention such as further imaging or surgical procedures for benign disease. - Benefits are obviously detection of lung cancer at an early stage which can lead to improved outcomes. - Discussed the importance of screening program compliance with adherence to yearly LDCT scan as scheduled - or sooner interval scans for personalized screening regimen. - Discussed follow up plan. Our office will send a letter discussing results and if needed set up phone call and office visit based on CT findings. - Patient educated on results categorization and the management decisions for suspicious findings potentially found on the screening LDCT scan. Any patient with a Lung RADS score of 3 or 4 will be reviewed by a multidisciplinary team at [facility] to form a plan of action in regards to scan findings. - If further work up is warranted for a suspicious lung finding this will be followed by the Lung Cancer Screening program in conjunction with the Thoracic Surgery Department at [facility]. - A copy of the office note and LDCT will be sent to the patient's PCP - as well as documentation on any associated further plans of care. - Incidental findings on LDCT are the PCP's responsibility. These findings are indicated with an S finding on the LDCT Assessment. A note discussing the findings will be sent to the PCP who is then responsible for further management. - All questions answered.? Coding Level of Care Code Lung Cancer Screening [id number] Diagnoses Nicotine dependence, cigarettes, uncomplicated F17.210
== END 2024-06-08 09:50 | disposition home or self-care (01) ==
PROVIDERS: PCP Internal Medicine; Visit Provider Physician Assistant Medical
DX: F17.210 Nicotine dependence, cigarettes, uncomplicated (principal)
CPT/HCPCS: G0296

== ENCOUNTER 2024-06-08 09:41 | Outpatient (REF) | payer OTHER, SELFPAY ==
--- NOTE | ~2024-06-08 | CT_ITS ---
EXAMINATION: CT LOW-DOSE SCREENING CHEST WITHOUT CONTRAST CLINICAL INFORMATION: Nicotine dependence, cigarettes, uncomplicated. The patient is a current smoker with a 34 pack-year history of smoking. COMPARISON: None available. TECHNIQUE: Multidetector volumetric CT imaging of the chest is performed on a Siemens SOMATOM Definition scanner without contrast using low dose technique. Additional 2D coronal and sagittal reformatted images and axial 3D maximum intensity projection (MIP) images are generated on the CT workstation. This CT examination was performed using dose optimization techniques as appropriate, variously including the following: *Automated exposure control *Adjustment of mA and/or kV according to patient size (this includes techniques or standardized protocols for targeted exams where dose is matched to indication/reason for exam; i.e. extremities or head) *Use of iterative reconstruction technique TOTAL EXAM DLP: 53 mGy-cm. CTDIvol: 1.62 mGy. FINDINGS: PULMONARY NODULES: A few small pulmonary nodules are seen includin.8 mm right upper lobe (5:126) and 3 mm lingula (5:248). No suspicious lung nodules are seen. LUNGS: Lungs bilaterally symmetrically expanded. Emphysematous changes are seen with bronchial thickening without bronchiectasis. Left basilar scarring is present. No effusion or pneumothorax. Central airways patent. MEDIASTINUM: No mediastinal, hilar or axillary adenopathy or free fluid collection. CORONARY ARTERY CALCIFICATION: None visualized on this study. THYROID GLAND: Unremarkable to the extent seen. CARDIOVASCULAR STRUCTURES: Aortic and heart size normal. No pericardial effusion. CHEST WALL/AXILLA: Unremarkable. UPPER ABDOMEN: Included portions of the solid organs in the upper abdomen unremarkable on noncontrast imaging. OSSEOUS STRUCTURES: No suspicious focal findings. CT/CT lung screening IMPRESSION: No finding seen suspicious for malignancy. ASSESSMENT: 1. Lung-RADS Category 2: Benign appearance or behavior of nodules. N/A 2. Lung-RADS Category S: Negative. There are no clinically significant or potentially clinically significant findings not related to the lungs requiring urgent additional evaluation. RECOMMENDATION: Continued routine annual low-dose CT lung screening in 1 year is recommended. An order for CT CHEST LOW DOSE CANCER SCREENING ([id number]) can be placed. Electronically signed by: Ayush Quintana MD 07/23/2024 09:08 PM EDT
== END 2024-06-08 09:42 | disposition home or self-care (01) ==
LOC: HO.CT 09:41
PROVIDERS: PCP Internal Medicine; Visit Provider Physician Assistant Medical
DX: Z12.2 Encounter for screening for malignant neoplasm of respiratory organs (principal); F17.210 Nicotine dependence, cigarettes, uncomplicated
CPT/HCPCS: 71271; G0296

== ENCOUNTER 2024-08-20 08:19 | Day surgery (SDC) | payer OTHER, SELFPAY ==
[2024-08-16 12:59] VITALS: BMI 27.9
--- NOTE | 2024-08-17 09:37 | P.CONAN_ITS ---
Documented by User: Saima Lockett NP 08/17/24 09:37 HPI - Anesthesia Eval Consult details Narrative: 49yo F for Colonoscopy PMFSH Active Problems Active Problems: All Active Problems Rectal bleeding (Acute) Encounter for screening colonoscopy (Acute) Panic attack as reaction to stress (Acute) RLS (restless legs syndrome) (Acute) Anxiety (Acute) Internal and external bleeding hemorrhoids (Acute) Nicotine dependence, cigarettes, uncomplicated (Acute) Past Medical History Medical History Panic attacks Nicotine dependence, cigarettes, uncomplicated RLS (restless legs syndrome) Internal and external bleeding hemorrhoids Anxiety Family History Family History Father No problems noted. Mother No problems noted. Surgical History Surgical History H/O breast biopsy Social History Social History (Updated 06/08/24 @ 09:40 by Delmi Blanco PA-C) Housing: House Alcohol intake: current Alcohol intake frequency: holidays/special occasions only Patient Tobacco Use Status: Never used Tobacco Tobacco use type: Cigarette Cigarette Packs Per Day: 1 Cigarettes Per Day: 20.0 Years Smoked: onset 14yo, 1ppd x 34yrs - 30pyh e-Cigarette/Vaping Use: Never Used Have you been hit, kicked, punched, or otherwise hurt by someone within the past year? If so, by whom?: No Are you DNR?: No Advance Directives: No Advance Directives Information Provided: Yes Recently lost weight without trying: No Nutrition Risks: No Nutritional Risk Patient : No service: No Current occupational status: employed Current occupation: [employer] Cognitive needs: No Hearing needs: No Vision needs: Yes Meds Allergies Allergy/AdvReac Type Severity Reaction Status Date / Time buspirone AdvReac Intermediate Nausea and Verified 04/27/24 08:00 Vomiting propranolol AdvReac Intermediate agitation Verified 08/16/24 12:55 Exam Height,Weight and Vital Signs: Height 5 ft 7 in Weight 80.739 kg Assessment and Plan Assessment Anesthesia Assessment: Chart Reviewed Documented by User: Ivette Hercules MD 08/20/24 09:53 [facility] Past Medical History Medical History Panic attacks Nicotine dependence, cigarettes, uncomplicated RLS (restless legs syndrome) Internal and external bleeding hemorrhoids Anxiety Family History Family History Father No problems noted. Mother No problems noted. Family history of problems with anesthesia: No Surgical History Surgical History H/O breast biopsy History of Problems with Anesthesia: No Social History Social History (Updated 06/08/24 @ 09:40 by Delmi Blanco PA-C) Housing: House Alcohol intake: current Alcohol intake frequency: holidays/special occasions only Patient Tobacco Use Status: Never used Tobacco Tobacco use type: Cigarette Cigarette Packs Per Day: 1 Cigarettes Per Day: 20.0 Years Smoked: onset 14yo, 1ppd x 34yrs - 30pyh e-Cigarette/Vaping Use: Never Used Have you been hit, kicked, punched, or otherwise hurt by someone within the past year? If so, by whom?: No Are you DNR?: No Advance Directives: No Advance Directives Information Provided: Yes Recently lost weight without trying: No Nutrition Risks: No Nutritional Risk Patient : No service: No Current occupational status: employed Current occupation: [employer] Cognitive needs: No Hearing needs: No Vision needs: Yes Meds Allergies Allergy/AdvReac Type Severity Reaction Status Date / Time buspirone AdvReac Intermediate Nausea and Verified 04/27/24 08:00 Vomiting propranolol AdvReac Intermediate agitation Verified 08/16/24 12:55 Exam Airway Mallampati Class: II TM Dist: >3cm Neck ROM: Full Assessment and Plan Assessment Anesthesia Assessment: Anesthesia Plan Discussed Final Anesthetic Review Family History of Problems with Anesthesia: No History of Problems with Anesthesia: No NPO: Yes ASA Class: II Final Preanesthetic Review: No Changes in Pt Med Stat, Meds/Allgs Chart Reviewed, Consent Obtained/Reviewed and Anes Risks/Benef Reviewed Patient Risk: Low Procedure Risk: Low Anesthetic Plan Anesthetic Plan: TIVA Disposition: Standard PACU
[2024-08-20 08:46] VITALS: BP 109/38; PULSE 61; RESP 18; TEMP 36.8; O2SAT 97; BMI 27.9; BMI 30.1
--- NOTE | 2024-08-20 09:21 | MHC.SHP ---
Pre-Procedural Eval Section A - 24 Hr Update-Section A only Date of Service: 08/20/24 The patient is an INPATIENT: No The patient has been examined within 24 hours of the surgical procedure. The History & Physical has been completed within 30 days and I have reviewed it.: No Section B - Complete if H&P > 30 days Chief Complaint: screening, rectal bleeding Relevant Family History (Specify if Yes): No Relevant Social History: Tobacco Use Present Medications: see Short Stay Collaborative assessment Medical History: Significant History (anxiety, panic attacks, RLS) History of Previous Operations: Relevant previous surgery/procedure and date(s) (H/O breast biopsy) Allergies: Allergies Allergy/AdvReac Type Severity Reaction Status Date / Time buspirone AdvReac Intermediate Nausea and Verified 04/27/24 08:00 Vomiting propranolol AdvReac Intermediate agitation Verified 08/16/24 12:55 Review of Systems Sugical H&P ROS: Negative: Constitution, Cardiovascular, Respiratory and Gastrointestinal Exam Surgical H&P Exam: Normal: Heart, Normal: Lungs, Normal: Extremities and Normal: Abdomen Plan Diagnosis/Plan: Unchanged I have reviewed the history and physical and performed a pertinent physical examination on my patient. No changes have occurred unless specified. Time Spent With Patient Time: Total time managing care of this patient today ____ minutes.
--- NOTE | 2024-08-20 10:31 | P.OPN-COLO_ITS ---
Colonoscopy Operative Note Operative Note Date of Service: 08/20/24 Narrative: COLONOSCOPY TILL CECUM WITH SNARE POLYPECTOMY, SUBMUCOSAL INJECTION AND HEMOCLIP PLACEMENT Pre-op diagnosis: Colon cancer screening (first colon). Post-op diagnosis:? Colon polyps, Diverticulosis, hemorrhoids Endoscopist:Senthil Orantes MD Anesthesia:?MAC Consent: Indications for the procedure and potential complications of bleeding, perforation, reaction to medications and missed diagnosis were discussed with the patient and informed consent was obtained. Instrument: Olympus PCF H 190 L variable stiffness pediatric colonoscope Monitoring: Vital signs and clinical assessment, intermittent blood pressure monitoring, continuous EKG monitoring, Pulse oximetry and Carbon Dioxide monitoring were done throughout the procedure. Please see anesthesia flowsheet. Colon withdrawl time was 25 minutes. Procedure: The patient was placed in the left lateral decubitis position and pre-procedure medications were administered. After a digital rectal examination of the ano-rectum, the video colonoscope was inserted into the rectum and advanced through the colon to the cecum. The colonoscope was slowly withdrawn in a retrograde panoramic fashion and the colon mucosa was carefully examined including a retroflexed view of the rectum. Findings and interventions are described below. Procedure Difficulty: without difficulty Findings: Terminal Ileum: Not evaluated Cecum: Normal Ascending Colon: A 15 to 18 mm sessile polyp in the distal ascending colon. Polyp was raised with 4 cc of [place] and removed with a stiff hot snare. Polypectomy site was treated with cautery using the snare tip and closed with 1 hemoclip. Transverse Colon: Two 12 -15 mm sessile polyps - removed with a stiff hot snare. Descending Colon: A 12-15 mm sessile polyp - removed with a stiff hot snare. Sigmoid Colon: Moderate diverticulosis Rectum: Normal Ano-rectum: Moderate internal hemorrhoids Colon preparation: Good after some irrigation. [place] Bowel Preparation Scale Right colon; 2 Transverse colon: 2 Left colon; 2 (0 = Unprepared colon segment with mucosa not seen due to solid stool that cannot be cleared. 1 = Portion of mucosa of the colon segment seen, but other areas of the colon segment not well seen due to staining, residual stool and/or opaque liquid. 2 = Minor amount of residual staining, small fragments of stool and/or opaque liquid, but mucosa of colon segment seen well. 3 = Entire mucosa of colon segment seen well with no residual staining, small fragments of stool or opaque liquid) Impression and Post Procedure Diagnosis: Colonoscopy Findings: Four medium sized polyps were removed Moderate diverticulosis seen in the sigmoid colon Moderate hemorrhoids on retroflexed exam - likely source of rectal bleeding. Plan: I will send a letter with biopsy results. Repeat Colonoscopy in 3 years if polyps are adenomatous and 10 year if polyps are hyperplastic. Above findings were reviewed with the patient and relevant handouts were given and the discharge area.
[2024-08-20 10:35] VITALS: BP 92/59; PULSE 58; RESP 15; TEMP 36.3; O2SAT 96
[2024-08-20 10:50] VITALS: BP 98/55; PULSE 58; RESP 20; TEMP 36.3; O2SAT 97
== END 2024-08-20 11:27 | disposition home or self-care (01) ==
PROVIDERS: PCP Internal Medicine; Visit Provider Internal Medicine Gastroenterology
PROC: 0DJD8ZZ Inspection of Lower Intestinal Tract, Via Natural or Artificial Opening Endoscopic (ICD-10-PCS; CPT 45378; principal; 2024-08-20 10:10)
DX: Z12.11 Encounter for screening for malignant neoplasm of colon (principal); D12.2 Benign neoplasm of ascending colon; D12.3 Benign neoplasm of transverse colon; K63.5 Polyp of colon; K57.30 Diverticulosis of large intestine without perforation or abscess without bleeding; K64.8 Other hemorrhoids; F41.0 Panic disorder [episodic paroxysmal anxiety]; F41.9 Anxiety disorder, unspecified; G25.81 Restless legs syndrome; Z79.899 Other long term (current) drug therapy; Z88.8 Allergy status to other drugs, medicaments and biological substances
CPT/HCPCS: 45385; 45381; 88305; J2003; J2704

== ENCOUNTER → 2024-08-20 08:19 | Outpatient (BNV) | payer OTHER, SELFPAY | PROVIDERS: PCP Internal Medicine; Visit Provider Internal Medicine Gastroenterology | DX: Z12.11 Encounter for screening for malignant neoplasm of colon (principal); K63.5 Polyp of colon; K57.30 Diverticulosis of large intestine without perforation or abscess without bleeding; K64.8 Other hemorrhoids | CPT/HCPCS: 45381; 45385 ==

== ENCOUNTER 2025-04-08 08:30 | Outpatient (AMB) | payer OTHER, SELFPAY ==
[2025-04-08 08:32] VITALS: BP 118/64; PULSE 77; RESP 18; TEMP 36.7; O2SAT 97; BMI 28.3
--- NOTE | 2025-04-08 08:32 | A.OFFPC_ITS ---
Vital Signs 04/08/25 08:32 Height 5 ft 7 in Weight 181 lb BMI 28.3 BP 118/64 Blood Pressure Location Lt brachial Position Sitting Respiration 18 Pulse 77 Pulse Source Pulse Oximeter Temp 98.0 F Temp Source Oral Pulse Oximetry (%) 97 Oxygen Delivery Method Room Air Intake Visit Reasons: Annual PE Intake Note: Pt is here today for PE. Allergies buspirone Adverse Reaction (Intermediate, Verified 04/08/25 08:34) Nausea and Vomiting propranolol Adverse Reaction (Intermediate, Verified 04/08/25 08:34) agitation Medication List - Last Reconciled 04/08/25 by Lennie Donohue MD hydrocortisone 2.5% (Proctosol HC) 1 appl IA BEDTIME PRN ropinirole 0.75 mg (1.5 x 0.5 mg) PO BEDTIME Tobacco use date assessed: 04/08/25 Dental Screening Dental Screen Date: 04/08/25 Did you have a dental visit in the last 12 months?: Yes Did you have a dental problem in the last 6 months where you did not have access to dental care?: No Was dental information given to patient?: Patient has dentist HPI Annual PE HPI Details Pt presents for PE. [facility] Medical History (Updated 04/08/25 @ 09:06 by Lennie Donohue MD) Smoker Annual physical exam Panic attacks Nicotine dependence, cigarettes, uncomplicated RLS (restless legs syndrome) Internal and external bleeding hemorrhoids Anxiety Surgical History (Updated 04/08/25 @ 09:18 by Lennie Donohue MD) Hx of colonoscopy with polypectomy H/O breast biopsy Family History Father No problems noted. Mother No problems noted. Social History Housing: House Alcohol intake: current Alcohol intake frequency: holidays/special occasions only Patient Tobacco Use Status: Current everyday Tobacco user Tobacco use type: Cigarette Cigarette Packs Per Day: 1 Cigarettes Per Day: 20.0 Years Smoked: onset 14yo, 1ppd x 34yrs - 30pyh e-Cigarette/Vaping Use: Never Used service: No Current occupational status: employed Current occupation: [employer] Cognitive needs: No Hearing needs: No Vision needs: Yes Questionnaire PHQ-9 Over the last 2 weeks, how often have you been bothered by any of the following problems? 1. Little interest or pleasure in doing things: not at all 2. Feeling down, depressed, or hopeless: not at all 3. Trouble falling or staying asleep, or sleeping too much: not at all 4. Feeling tired or having little energy: not at all 5. Poor appetite or overeating: not at all 6. Feeling bad about yourself - or that you are a failure or have let yourself or your family down: not at all 7. Trouble concentrating on things, such as reading the newspaper or watching television: not at all 8. Moving or speaking so slowly that other people could have noticed. Or the opposite - being so fidgety or restless that you have been moving around a lot more than usual: not at all 9. Thoughts that you would be better off or of hurting yourself in some way: not at all Total score: 0 Depression Screening Interpretation: Negative Depression Screening Done: Yes 50975 - PHQ-9 Billing: Yes Source: Developed by Drs. Isidro Victor, Desire Freeman, Nain Serrato and colleagues, with an educational ivis from [facility]. Thrive Questionnaire Date Thrive assessed: 04/08/25 I am a: Patient What is your living situation today?: I have a steady place to live Within the past 12 months, did the food you bought not last and you didn't have the money to get more?: Never true Within the past 12 months, did you worry whether your food would run out before you got money to buy more?: Never true Do you have trouble paying for medicines?: No Do you have trouble getting transportation to medical appointments?: No Do you have trouble paying your heating and electricity bill?: No Do you have trouble taking care of your child, family member or friend?: No Do you have trouble with day-to-day activities such as bathing, preparing meals, shopping, managing finances, etc.?: No Are you currently unemployed and looking for a job?: No Are you interested in more education?: No Please select the resources that you would like help with: None Currently or been in a relationship where the following occur: I choose not to answer THRIVE Score: 0 AUDIT C Alcohol Use Questionnaire (AUDIT-C) 1. How often do you have a drink containing alcohol?: 2-4 times a month 2. How many drinks containing alcohol do you have on a typical day when you are drinking?: 1 or 2 3. How often do you have six or more drinks on one occasion?: Never Total Score: 2 HILDA-7 AMB Questionnaire HILDA-7 Date HILDA - 7 assessed: 04/08/25 Feeling nervous, anxious, or on edge: 0 = Not at all Not being able to stop or control worryin = Not at all Worrying too much about different things: 0 = Not at all Trouble relaxin = Not at all Being so restless that it is hard to sit still: 0 = Not at all Becoming easily annoyed or irritable: 0 = Not at all Feeling afraid as if something awful might happen: 0 = Not at all Total HILDA-7 score (0-4 normal; 5-9 mild; 10-14 moderate; 15-21 severe): 0 Source: Developed by Drs. Isidro Victor, Desire Freeman, Nain Serrato and colleagues, with an educational ivis from [facility]. HILDA-7 Assessment Billing HILDA-7 Assessment Tool: HILDA-7 Assessment 16142 Review of Systems Const All systems reviewed & are unremarkable except as noted in HPI and below Reports no additional complaints Eyes Reports no additional complaints ENT Reports no additional complaints Card Reports no additional complaints Resp Reports no additional complaints GI Reports no additional complaints Reports no additional complaints Physical exam (Primary Care) Vital Signs: Last Vital Signs Temp 98.0 F 04/08/25 08:32 Pulse 77 04/08/25 08:32 Resp 18 04/08/25 08:32 BP 118/64 04/08/25 08:32 Pulse Ox 97 04/08/25 08:32 Oxygen Delivery Method Room Air 04/08/25 08:32 BMI result Body Mass Index 28.3 Tobacco/Smoking Status: Tobacco use Status Tobacco use date assessed 04/08/25 04/08/25 08:38 Patient Tobacco Use Status Current everyday Tobacco 04/08/25 08:38 Tobacco use type Cigarette 04/08/25 08:38 e-Cigarette/Vaping Use Never Used 04/08/25 08:38 PHQ-9: PHQ-9 Score PHQ-9: Total score 0 04/08/25 08:38 Depression Screening Interpretation: Negative Thrive Assessment: Date of Thrive Assessment Date Thrive assessed 04/08/25 04/08/25 08:40 Currently or been in a relationship where the following occur: I choose not to answer Const General: no acute distress HENMT Head: Yes normal to inspection General nose exam: Normal external nose present Face and sinus: Yes normal facial exam Mouth: Normal oral and palatal mucosa present Throat: Yes posterior oropharynx normal Eyes General: appearance normal, both eyes and all related structures Neck Neck: Yes no lymphadenopathy and Yes supple Resp Effort & Inspection: normal respiratory effort Auscultation: clear to auscultation bilaterally Cardio Rhythm: regular rhythm Heart sounds: S1 normal heart sound present and S2 normal heart sound present GI Inspection: Yes normal to inspection Palpation (GI): Soft to palpation Percussion: Yes normal to percussion Auscultation: normal bowel sounds Coding Level of Care Code Est Pt Prev Care 40-64y(34153) Diagnoses Smoker F17.200 Annual physical exam Z00. Additional Codes HILDA-7 Assessment Billing - HILDA-7 Assessment Tool: HILDA-7 Assessment 39508 ([id number]) PHQ-9 - 53462 - PHQ-9 Billing: Yes ([id number]) Assessment & Plan Assessment & Plan (1) Smoker: Comment: 1 PPD X 30 yrs, not interested to quit, referred to lung ca screen program 03/05/24 Code(s): F17.200 - Nicotine dependence, unspecified, uncomplicated Category: Social Hx Plan: Tobacco quitting discussed with the patient (2) Annual physical exam: Code(s): Z. - Encounter for general adult medical examination without abnormal findings Category: Medical Plan: Well-balanced diet regular physical activity discussed with the patient. Mammogram will be scheduled. Patient is up-to-date with the Pap smear. She will return for fasting blood work Orders: Orders Comprehensive [place]. Panel Fast Today F17.200 - Nicotine dependence, unspecified, uncomplicated, Z00.00 - Encounter for general adult medical examination without abnormal findings TSH reflex Free T4 Today F17.200 - Nicotine dependence, unspecified, uncomplicated, Z00.00 - Encounter for general adult medical examination without abnormal findings Vitamin D 25-OH Total Today F17.200 - Nicotine dependence, unspecified, uncomplicated, Z00.00 - Encounter for general adult medical examination without abnormal findings UA w Microscopic Today F17.200 - Nicotine dependence, unspecified, uncomplicated, Z00.00 - Encounter for general adult medical examination without abnormal findings MM screening mammo BI Today Z12.31 - Encounter for screening mammogram for malignant neoplasm of breast Comprehensive [place]. Panel Fast 1 Year Z00.00 - Encounter for general adult medical examination without abnormal findings Complete Blood Count Auto Diff 1 Year Z00.00 - Encounter for general adult medical examination without abnormal findings Lipid Panel 1 Year Z00.00 - Encounter for general adult medical examination without abnormal findings Complete Blood Count Auto Diff Today F17.200 - Nicotine dependence, unspecified, uncomplicated, Z00.00 - Encounter for general adult medical examination without abnormal findings Lipid Panel Today F17.200 - Nicotine dependence, unspecified, uncomplicated, Z00.00 - Encounter for general adult medical examination without abnormal findings
--- OUTSIDE RECORDS SUMMARY | 2025-04-08 08:41 | XMS_ITS | Data Portability ---
Author Organization [place] [facility] Still AONE [place] Address [address] [place] [phone] Assessment Encounter Date Assessment Date Assessment LastModified by Organization Details LastModified Time 11/30/2024 11/30/2024 HPI : Patient is here today with complaints of left knee pain. The patient is experiencing left knee pain, which is moderate in intensity, and has recently worsened. The pain limits some activities of daily living. Walking tolerance is reduced. Pain and restriction of function are moderate at this time. She has done nvlj-sey-qnwebaf creams which have brought mild relief. Review of systems is negative for other rapidly progressive neurological disorder, chest pain, shortness of breath, fevers, chills, or any signs of active or persistent local or systemic infection. Physical Exam : Patient is well nourished, well-developed, in no acute distress, with appropriate mood and affect. The patient is oriented to time, place, and person. Examination of the contralateral knee shows normal range of motion, strength, no tenderness, and intact skin. The affected limb is well-perfused, without skin lesions, shows a grossly normal motor and sensory examination. Left knee motion is reduced and does cause significant pain. The left knee moves from 0-125 degrees. The knees are stable within those [id number]-km-[id number] . The alignment of the left knee is neutral . Muscle strength is normal. Pedal pulses are palpable. Hip examination, including flexion and internal rotation, was negative in that groin pain was not produced. Assessment/Plan : The patient has mild left knee arthritis. An extensive discussion was conducted on the natural history of the disease and the variety of surgical and non-surgical options available to the patient including, but not limited to non-steroidal anti-inflammator y medications, steroid injections, viscosupplementa tion, physical therapy, maintenance of ideal body weight, and reduction of activity. Patient was prescribed meloxicam. Discussed the risks of NSAID use with the patient, including but not limited to stomach irritation, gastric ulcers, kidney issues, and bleeding. If considering long-term use, the patient should discuss with their primary care physician. Follow-up in 2 months with NNAMDI Salas for reevaluation at that time. [email or web address] Not available 11/30/2024 10:35:10 Plan of Treatment Reminders Order Date Submit Date Provider Last Modified By Organization Details Last Modified Time Details Appointments None recorded. Lab None recorded. Referral None recorded. Procedures None recorded. Surgeries None recorded. Imaging XR, knee, 4 or more view 2024 025 [email or web address] [facility], [address], [facility] [address], [place], [address], 11:57:15 Medication Orders meloxicam 15 mg tablet 2024 025 [facility][id number], [address] [place], [address], 5 10:32:59 Patient TargetsNo targets recorded. Patient InstructionsNo instructions recorded. Reason for Referral None Reported. Problems Name Problem SNOMED Code Status Onset Date Resolution Date Notes Provider Name and Address Organization Details Recorded Time Osteoarthri tis of left knee joint [id number] 09 Active 2024 Huseyin Baron MD [address] [place] [address],[facility] [address], [place], [address] [facility], 5 10:32:45 Problem Notes None recorded. Medical Equipment None Reported. Allergies No known drug allergies Medications Name Sig Start Date Stop Date Status Note LastModified by Organization Details LastModified Time meloxicam 15 mg tablet TAKE 1 TABLET EVERY DAY BY ORAL ROUTE NEEDED, FOR PAIN. active Not Available Not Available No t Available ropinirole 0.5 mg tablet TAKE 1 1/2 TABLETS BY MOUTH 1-3 HOURS BEFORE BEDTIME active Not Available Not Available No t Available Laxative (bisacodyl) 5 mg tablet,delay ed release PLEASE SEE ATTACHED FOR DETAILED DIRECTIONS active Not Available Not Available N ot Available Gavilax 17 gram/dose oral powder PLEASE SEE ATTACHED FOR DETAILED DIRECTIONS active Not Available Not Available N ot Available Vitals Date Recorded Body height Body mass index (BMI) Body weight Provider Name and Address Organization Details Last Updated DateTime 11/30/2024 170.18 cm 28.3 kg/m2 18159.[address] [facility], 11/30/2024 10:15:35 Social History None recorded. Functional Status Question Answer Note LastModified by Organizat ion Details LastModified Time Do you use any illicit or recreational drugs? No Information not available 11/30/2024 What is your level of alcohol consumption? Occasional Information not available 11/30/2024 Mental Status None recorded. Family History Nothing Reported. Medical History Condition Response Coronary Artery Disease N Gout N Hyperthyroidism N MRSA N Blood Transfusion N Emphysema N Hypothyroidism N Depression N COPD N Pacemaker N Vascular Disease N Gastrointestinal Disease N Anxiety Disorder N Autoimmune disease N Arthritis N Cancer N Stroke N High Cholesterol N Neurologic Disorder N Liver Disease N Organ Transplant N Rheumatoid Arthritis N Arrhythmia N Fibromyalgia N Kidney Disease N Allergies/Hayfever N Adverse Reaction to Anesthesia N Thyroid Problems N Anemia N Brain Injury N Heart Attack (SD) N Osteopenia N Diabetes N Bleeding Disorder N Seizures/Epilepsy N AIDS/HIV N Congestive Heart Failure (CHF) N Asthma N Amputation N Reflux/GERD N Sleep Apnea N Hepatitis N Aneurysm N Heart Disease N Pulmonary Embolism N Hypertension N Osteoporosis N Gynecological HistoryNo gynecological history recorded. Obstetrics History GPAL:G 0 P 0 0 0 0 Past Encounters Encounter ID Performer Location Encounter Start Date Encounter Closed Date Diagnosis/Indication Diagnosis SNOMED-CT Code Diagnosis ICD10 Code Diagnosis Note [id number] MD MAKSIM Mathews [address] [place] [address] 11/30/2024 10:09:33 11/30/2024 10:36:44 Pain of left knee joint [id number] 94729 M25.562 Osteoarthr itis of left knee joint [id number] 81201 M17.12 Health Concerns Section Related Observation LastModified by Organization Detai ls LastModified Time None Recorded Concern Status LastModified by Organization Details LastModified Time None Recorded Advance Directives Directive None Recorded Payers Insurance Date Sequence Insurance Name Policy Number Policy Gardner Covered Member ID Gardner Member ID Guarantor Name 11/23/2024 1 HUONG [id number] Erickson Charles [id number] 2 Erickson Charles OBSaloni Episode No OBEpisode recorded.
== END 2025-04-08 09:14 | disposition home or self-care (01) ==
LOC: HO.HMCC 08:31
PROVIDERS: PCP Internal Medicine; Visit Provider Internal Medicine
DX: F17.200 Nicotine dependence, unspecified, uncomplicated (principal); Z00.00 Encounter for general adult medical examination without abnormal findings

== ENCOUNTER → 2025-04-08 08:30 | Outpatient (BNVA) | payer OTHER, SELFPAY | PROVIDERS: PCP Internal Medicine; Visit Provider Internal Medicine | DX: Z00.00 Encounter for general adult medical examination without abnormal findings (principal); F17.210 Nicotine dependence, cigarettes, uncomplicated | CPT/HCPCS: 96127 ==

== ENCOUNTER 2025-05-25 08:36 | Outpatient (REF) | payer OTHER, SELFPAY ==
--- OUTSIDE RECORDS SUMMARY | 2025-05-25 08:38 | XMS_ITS ---
Author Name [facility] Organization Unknown History of Medication Use Medication Directions Dispensed Refills Start Date End Date Stat us meloxicam 15 mg tablet Take 1 tablet every day by oral route as needed, for pain. 11/30/2024 active meloxicam 15 mg tablet active Gavilax 17 gram/dose oral powder PLEASE SEE ATTACHED FOR DETAILED DIRECTIONS active Laxative (bisacodyl) 5 mg tablet,delayed release PLEASE SEE ATTACHED FOR DETAILED DIRECTIONS active ropinirole 0.5 mg tablet TAKE 1 1/2 TABLETS BY MOUTH 1-3 HOURS BEFORE BEDTIME active Problems Problem Status Onset Date Problem Type Date of Resoluti on Source Osteoarthritis of left knee joint active 2024-11-30 ProblemAct ENS_AONECT Encounters Encounter Type Encounter Reason Primary Diagnosis Location Date Ambulatory [facility] 12/03/2024 [facility] 11/30/2024 [facility] 11/30/2024 [facility] 11[facility]30/2024 [facility] 11/30/2024 [facility] 11/30/2024 [facility] 11/23/2024 [facility] 11/23/2024 [facility] 11/23/2024
[2025-05-25 11:08] LABS: MANUAL DIFF FLAG NO
[2025-05-25 11:13] LABS: Appearance Urine Cloudy; Glucose Urine UA Negative (Negative); PH 7.0 (5.0-9.0); Specific Gravity - Urine 1.020 (1.005-1.025)
[2025-05-25 11:14] LABS: UMIC TRIGGER UA YES
[2025-05-25 11:15] LABS: Hematocrit 37.7 % (37.0-47.0); Hemoglobin 12.7 g/dl (12.0-16.0); Imm Gran Abs Auto 0.03 X10*3/uL (0.00-0.03); Imm Gran Pct Auto 0.4 % (0.0-0.4); Lymphocytes Absolute Auto 2.1 X10*3/uL (1.2-4.9); Mean Corpuscular HGB Conc 33.7 g/dl (31.0-35.0); Mean Corpuscular Hemoglobin 30.9 pg (27.0-33.0); Mean Corpuscular Volume 91.7 fL (80.0-98.0); NRBC Abs Auto 0.000 X10*3/uL (0.0-0.012); NRBC Pct Auto 0.0 /100WBC (0.0-0.2); Platelet Count 374 X10*3/uL (160-400); Red Blood Count 4.11 X10*6/uL (4.20-5.50); White Blood Count 7.5 X10*3/uL (4.8-10.8)
[2025-05-25 12:11] LABS: Alanine Aminotransferase 29 U/L (0-31); Albumin Level 4.3 g/dL (3.5-5.0); Alkaline Phosphatase 96 U/L (39-117); Anion Gap 11 (12-20); Aspartate Amino Transferase 27 U/L (5-31); Blood Urea Nitrogen 16 mg/dL (9-16); Calcium 9.2 mg/dL (8.4-10.2); Carbon Dioxide 27 mmol/L (22-29); Chloride 108 mmol/L (96-108); Cholesterol 190 mg/dL (<200); Estimated Glomerular Filt Rate > 60; HDL Cholesterol 56 mg/dL (>40); Potassium 4.4 mmol/L (3.3-5.1); Sodium 142 mmol/L (135-145); Total Protein 6.4 g/dL (6.5-8.0); Triglycerides 76 mg/dL (<150)
== END 2025-05-25 08:37 | disposition home or self-care (01) ==
LOC: HO.HMGCLDS 08:36
PROVIDERS: PCP Internal Medicine; Visit Provider Internal Medicine
DX: Z00.00 Encounter for general adult medical examination without abnormal findings (principal); F17.200 Nicotine dependence, unspecified, uncomplicated
CPT/HCPCS: 36415; 80053; 80061; 81001; 82306; 84443; 85025

== ENCOUNTER 2025-05-28 16:17 | Outpatient (REF) | payer OTHER, SELFPAY ==
--- NOTE | ~2025-05-28 | MM_ITS ---
EXAMINATION: MM SCREENING DIGITAL BREAST TOMOSYNTHESIS, BILATERAL CLINICAL INFORMATION: Screening. Asymptomatic. COMPARISON: Comparison made to multiple prior, most recent April 07, 2023, and most remote December 24, 2017. TECHNIQUE: Digital breast tomosynthesis is performed in mediolateral oblique and craniocaudal views along with computer-aided detection (CAD). Additional views were taken if needed. FINDINGS: BREAST COMPOSITION: The breasts are heterogeneously dense, which may obscure small masses (ACR BI-RADS breast composition Category c). RIGHT BREAST: Tissue marker from previous needle core biopsy. No significant masses, suspicious calcifications or other abnormalities are seen. LEFT BREAST: No significant masses, suspicious calcifications or other abnormalities are seen. MM/MM tomosynthesis screening BI IMPRESSION: BILATERAL BREASTS: Benign, no mammographic evidence of malignancy. Normal interval follow-up is recommended in 12 months. ASSESSMENT: BI-RADS 2 - Benign Findings RECOMMENDATION: Routine annual mammography screening. FOLLOW-UP: 1 year F/U This examination should not preclude the clinical evaluation of a suspicious palpable abnormality. This patient's information was entered into a reminder system with a target due date for their next mammogram. Electronically signed by: Shahla Collado MD 06/01/2025 12:18 PM EDT
== END 2025-05-28 16:18 | disposition home or self-care (01) ==
LOC: HO.MAMMO 16:17
PROVIDERS: PCP Internal Medicine; Visit Provider Internal Medicine
DX: Z12.31 Encounter for screening mammogram for malignant neoplasm of breast (principal)
CPT/HCPCS: 77063; 77067

== ENCOUNTER → 2025-05-28 16:30 | Outpatient (BNV) | payer OTHER, SELFPAY | PROVIDERS: PCP Internal Medicine; Visit Provider Radiology Body Imaging | DX: Z12.31 Encounter for screening mammogram for malignant neoplasm of breast (principal) | CPT/HCPCS: 77063; 77067 ==

== ENCOUNTER 2025-06-10 15:20 | Outpatient (AMB) | payer OTHER, SELFPAY ==
[2025-06-10 15:28] VITALS: BP 122/64; PULSE 92; TEMP 37.2; O2SAT 96; BMI 28.5
--- NOTE | 2025-06-10 15:28 | MHC.OFFWIV ---
Intake Vital Signs 06/10/25 15:28 Height 5 ft 7 in Weight 182 lb BMI 28.5 BP 122/64 Blood Pressure Location Lt brachial Position Sitting Pulse 92 Pulse Source Pulse Oximeter Temp 98.9 F Temp Source Oral Pulse Oximetry (%) 96 Oxygen Delivery Method Room Air Intake Visit Reasons: EP LT leg pain Intake Note: pt presents with left hip pain since last night- denies injury Patient Tobacco Use Status: Current everyday Tobacco user Allergies buspirone Adverse Reaction (Intermediate, Verified 06/10/25 15:31) Nausea and Vomiting propranolol Adverse Reaction (Intermediate, Verified 06/10/25 15:31) agitation Do you need a note to return to daycare/school/sports/work: Yes HPI HPI Comments History of Present Illness Details History of Present Illness - The patient is a 49-year-old female presenting with left hip pain and numbness in the foot. - The pain began after 11:00 PM the previous day, initially mild but worsened overnight. - She states that she has pain in the left front of her hip and it radiates to the left upper leg and down to the foot. - Pain is worse with movement and standing. - The patient works in a factory, involving standing, bending, and walking, which may contribute to the symptoms. - No prior history of similar symptoms was discussed. - She denies trauma, falls, back pain, CP, SOB, knee pain or ankle pain. Physical Exam General: Cooperative, healthy appearing, comfortable, no acute distress and well developed Orientation: Patient oriented x3 Respiratory: Normal respiratory effort and able to speak in complete sentences. Clear to auscultation bilaterally Cardiovascular: Regular rate and rhythm. Normal S1 and S2 GI: Normal to inspection. Soft to palpation and nontender. No hernia noted. Skin: No rashes or lesions noted Neuro: Sensation is intact. Extremities: FROM of the spine. FROM of the left hip. TTP of the left pelvic brim and anterior left groin. No click noted. No SI joint tenderness noted. No TTP of the lumbar spine. Flexion and extension of the spine intact. FROM of the left knee and ankle. Walks with a limp. Strength is 5/5 on the LE. Patient was informed and verbally consented to the use of an ambient scribe for clinic note documentation during this visit. [facility] Medical History (Updated 04/23/25 @ 08:32 by Delmi Blanco PA-C) Colon polyps Panic attacks Nicotine dependence, cigarettes, uncomplicated RLS (restless legs syndrome) Internal and external bleeding hemorrhoids Anxiety Surgical History (Updated 04/23/25 @ 08:32 by Delmi Blanco PA-C) History of colonoscopy H/O breast biopsy Family History Father No problems noted. Mother No problems noted. Social History Housing: House Alcohol intake: current Alcohol intake frequency: holidays/special occasions only Patient Tobacco Use Status: Current everyday Tobacco user Tobacco use type: Cigarette Cigarette Packs Per Day: 1 Cigarettes Per Day: 20.0 Years Smoked: onset 14yo, 1ppd x 34yrs - 30pyh e-Cigarette/Vaping Use: Never Used service: No Current occupational status: employed Current occupation: [employer] Cognitive needs: No Hearing needs: No Vision needs: Yes Review of Systems Const All systems reviewed & are unremarkable except as noted in HPI and below Physical Exam Vital Signs: Last Vital Signs Temp 98.9 F 06/10/25 15:28 Pulse 92 06/10/25 15:28 BP 122/64 06/10/25 15:28 Pulse Ox 96 06/10/25 15:28 Oxygen Delivery Method Room Air 06/10/25 15:28 BMI result Body Mass Index 28.5 Results Reviewed Results Reviewed: reviewed the xray in the office Assessment & Plan Assessment & Plan (1) Left hip pain: Code(s): M25.552 - Pain in left hip Plan Most likely arthritis vs groin strain vs sciatica vs bursitis plan - An x-ray of the left hip and pelvis was ordered to rule out fractures or bursitis. - activities as tolerated. - Rest, ice and elevation - Prescribed muscle relaxers and pain medication to manage symptoms. - Referral to physical therapy for further management. - follow up with PCP. Orders: Orders XR hip LT w PEL1V Today M25.552 - Pain in left hip Medications: New naproxen 500 mg PO Q12H PRN 20 tabs 0RF pain 7 days cyclobenzaprine 5 mg PO Q8H PRN 20 tabs 0RF Muscle Spasm Coding Level of Care Code Est Pt Level 4 (24491) Diagnoses Left hip pain M25.552
== END 2025-06-10 16:20 | disposition home or self-care (01) ==
PROVIDERS: PCP Internal Medicine; Visit Provider Physician Assistant Medical
DX: M25.552 Pain in left hip (principal)

== ENCOUNTER 2025-06-10 15:20 | Outpatient (REF) | payer OTHER, SELFPAY ==
--- NOTE | ~2025-06-10 | XR_ITS ---
EXAMINATION: XR HIP, LEFT CLINICAL INFORMATION: M25.552 - Pain in left hip COMPARISON: None available. TECHNIQUE: AP upright, AP supine, and frog-leg lateral views of the left hip. FINDINGS: SI joints are symmetrical. Pubic symphysis joint is unremarkable. SI joints are symmetrical. There is no joint space narrowing. Two calcific densities are visible cephalad to the left greater trochanter and lateral to the greater trochanter. More linear calcific density projects over the lateral aspect of the right greater trochanter and into the soft tissues. XR/XR hip LT w PEL1V IMPRESSION: Suspected calcific tendinitis involving bilateral gluteal tendons. Electronically signed by: Waqar Rios MD 06/10/2025 04:35 PM EDT
== END 2025-06-10 15:21 | disposition home or self-care (01) ==
LOC: HO.HMGCX 15:20
PROVIDERS: PCP Internal Medicine; Visit Provider Physician Assistant Medical
DX: M25.552 Pain in left hip (principal)
CPT/HCPCS: 73502

== ENCOUNTER → 2025-06-10 16:21 | Outpatient (BNV) | payer OTHER, SELFPAY | PROVIDERS: PCP Internal Medicine; Visit Provider Radiology Diagnostic Radiology | DX: M25.552 Pain in left hip (principal) | CPT/HCPCS: 73502 ==

== ENCOUNTER 2025-08-01 07:21 | Outpatient (REF) | payer OTHER, SELFPAY ==
--- NOTE | ~2025-08-01 | CT_ITS ---
EXAMINATION: CT LOW-DOSE SCREENING CHEST WITHOUT CONTRAST CLINICAL INFORMATION: F17.210 - Nicotine dependence, cigarettes, uncomplicated COMPARISON: Chest CT on June 08, 2024 TECHNIQUE: Multidetector volumetric CT imaging of the chest is performed on a Siemens SOMATOM Definition scanner without contrast using low dose technique. Additional 2D coronal and sagittal reformatted images and axial 3D maximum intensity projection (MIP) images are generated on the CT workstation. This CT examination was performed using dose optimization techniques as appropriate, variously including the following: *Automated exposure control *Adjustment of mA and/or kV according to patient size (this includes techniques or standardized protocols for targeted exams where dose is matched to indication/reason for exam; i.e. extremities or head) *Use of iterative reconstruction technique CTDIvol: 1.72 mGy. FINDINGS: PULMONARY NODULES: Small pulmonary nodules are unchanged from 202, for example: Subpleural 0.4 cm in the lateral and posterior aspects of the right upper lobe (4:38), 0.3 cm in the right middle lobe (4:70), and 0.3 cm in the left lower lobe along the minor fissure (4:78). Subpleural groundglass nodule measuring 0.4 cm in the lateral right middle lobe (4:71) not well seen in 2024 could represent an area of focal atelectasis. LUNGS: Central airways are patent. No focal lung consolidation. Linear scarring in the left lung base. PLEURA: No pneumothorax or pleural effusion. MEDIASTINUM: Heart is normal in size. No pericardial effusion. Scattered vascular calcifications along the aortic arch. CORONARY ARTERY CALCIFICATION: None visualized on this study. THYROID GLAND: Unremarkable to the extent seen. CHEST WALL/AXILLA: Unremarkable. UPPER ABDOMEN: Included portions of the solid organs in the upper abdomen unremarkable on noncontrast imaging. OSSEOUS STRUCTURES: No suspicious focal findings. CT/CT lung screening IMPRESSION: Pulmonary nodules as described above measuring up to 0.4 cm. ASSESSMENT: 1. Lung-RADS Category 2: Benign appearance or behavior of nodules. 2. Lung-RADS Category S: Negative. There are no clinically significant or potentially clinically significant findings not related to the lungs requiring urgent additional evaluation. RECOMMENDATION: Continued routine annual low-dose CT lung screening in 1 year is recommended. An order for CT CHEST LOW DOSE CANCER SCREENING ([id number]) can be placed. Electronically signed by: Shahla Collado MD 08/02/2025 11:23 AM EDT
--- OUTSIDE RECORDS SUMMARY | 2025-08-01 07:23 | XMS_ITS | Data Portability ---
Author Organization [facility] Katty Still AONE [place] Address [address] [place] [address] Assessment Encounter Date Assessment Date Assessment LastModified by Organization Details LastModified Time 11/30/2024 11/30/2024 HPI : Patient is here today with complaints of left knee pain. T he patient is experiencing left knee pain, which is moderate in intensity, and has recently worsened. The pain limits some activities of daily living. Walking tolerance is reduced. Pain and restriction of function are moderate at this time. She has done dhae-ryk-mejxbhg creams which have brought mild relief. Review [...] degrees. The knees are stable within those sacqkx-uj-iyvboh . The alignment of the left knee [...] more view 2024 025 [email or web address] [facility], [address], [facility] [address], [place], [address], 11:57:15 Medication Orders meloxicam 15 mg tablet 2024 025 [facility] #[id number], [address] [place] [address], [address], 10:32:59 Patient TargetsNo targets recorded. Patient InstructionsNo instructions recorded. Reason for Referral None Reported. Problems Name Problem SNOMED Code Status Onset Date Resolution Date Notes Provider Name and Address Organization Details Recorded Time Osteoarthri tis of left knee joint [id number] 09 Active 2024 Huseyin Baron MD [address] [place] [address],[facility] [address], [place], [address] [facility], 5 10:32:45 Problem Notes None recorded. Medical [...] Updated DateTime 11/30/2024 170.18 cm 28.3 kg/m2 15999.[address] [facility], 11/30/2024 10:15:35 Social History None recorded. Functional [...] Blood Transfusion N Emphysema N Hypothyroidism N COPD N Depression N Pacemaker N Vascular Disease N Gastrointestinal Disease N Anxiety Disorder N Autoimmune disease N Arthritis N Cancer N Stroke N High Cholesterol N Neurologic Disorder N Liver Disease N Organ Transplant N Arrhythmia N Rheumatoid Arthritis N Fibromyalgia N Kidney Disease N Allergies/Hayfever N Adverse Reaction to Anesthesia N Thyroid Problems N Anemia N Brain Injury N Heart Attack ([place]) N Osteopenia N Diabetes N Bleeding Disorder [...] Diagnosis SNOMED-CT Code Diagnosis ICD10 Code Diagnosis IMO Codes Diagnosis Note [id number] MD MAKSIM Mathews [address] [address] 11/30/2024 10:09:33 11/30/2024 10:36:44 Pain of left knee joint [id number] 15393 M25.562 881435 Osteoarthr itis of left knee joint 4494582621 03608 M17.12 0730422 Health Concerns Section Related Observation LastModified by Organization Detai ls LastModified Time None Recorded Concern Status LastModified by Organization Details LastModified Time None Recorded Advance Directives Directive None Recorded Payers Insurance Date Sequence Insurance Name Policy Number Policy Gardner Covered Member ID Gardner Member ID Guarantor Name 11/23/2024 1 HUONG [id number] Erickson Charles [id number] 2 Erickson Charles OBGyrickey Episode No OBEpisode recorded.
== END 2025-08-01 07:22 | disposition home or self-care (01) ==
LOC: HO.CT 07:21
PROVIDERS: PCP Internal Medicine; Visit Provider Physician Assistant Medical
DX: Z12.2 Encounter for screening for malignant neoplasm of respiratory organs (principal); F17.210 Nicotine dependence, cigarettes, uncomplicated
CPT/HCPCS: 71271

== ENCOUNTER → 2025-08-01 07:23 | Outpatient (BNV) | payer OTHER, SELFPAY | PROVIDERS: PCP Internal Medicine; Visit Provider Radiology Body Imaging | DX: F17.210 Nicotine dependence, cigarettes, uncomplicated (principal) | CPT/HCPCS: 71271 ==